=== PATIENT | female | born 1995 | race Caucasian/White ===

== ENCOUNTER → 2021-11-15 02:10 | Outpatient (CLI) | payer BC, SELFPAY ==
[2021-11-15 19:53] LABS: SARS-CoV-2 RNA PCR Negative
== END ==
PROVIDERS: PCP Internal Medicine; Visit Provider Obstetrics & Gynecology
DX: Z01.812 Encounter for preprocedural laboratory examination (principal); Z20.822 Contact with and (suspected) exposure to COVID-19
CPT/HCPCS: C9803; U0003; U0005

== ENCOUNTER 2021-11-15 09:02 | Outpatient (CLI) | payer BC, SELFPAY | END 2021-11-15 09:03 | disposition home or self-care (01) | LOC: ANHSURGERY 09:05 | PROVIDERS: PCP Internal Medicine; Visit Provider Obstetrics & Gynecology | DX: R10.2 Pelvic and perineal pain (principal); Z01.818 Encounter for other preprocedural examination | CPT/HCPCS: 36415; 86850; 86900; 86901 ==

== ENCOUNTER 2021-11-18 02:11 | Day surgery (SDC) | payer BC, SELFPAY ==
[2021-11-14 14:46] VITALS: BMI 37.5
--- NOTE | 2021-11-14 14:55 | PC.NURSE ---
Report to the Outpatient Waiting Room, entrance under the green pavilion located off [facility], at time 7:30 on date 11/18/21. OR Time: 9:30. - You will be asked a series of questions to screen for COVID 19 for your protection. - A mask is required within the hospital. - No visitors are allowed at this time. Preoperative COVID Testing Requirements: COVDI TEST 11/15 AT 9:15 No COVID Test needed if: (proof is required; if not received patient will have Rapid Test prior to entry) - Patient has received COVID Vaccine at least 14 days prior to procedure date or - Patient has positive COVID test result within last 90 days of surgery date. COVID Test needed if above criteria is not met If not COVID vaccinated a COVID test must be conducted within 72 hours of surgery and patient is asked to isolate self from time of testing until procedure. You will go to the [employer] [facility] for your COVID testing. The [employer] [facility] is located at the corner of [address] from [facility]. You will only be called if COVID results are positive and your surgeon may reschedule your elective surgery date. Patients may have clear liquids (water, carbonated beverages, clear teas, apple juice) until 3 hours prior to surgery (6:30) with a maximum of 20 ounces. - No food from midnight until time of surgery Take the following medications with a SIP of water the morning of surgery: NONE Medications to discontinue per physician: N/A Date to take last dose: N/A Please no make-up, nail sinhala, hairspray, perfume, deodorant, or body powder the day of surgery. No jewelry (including any body piercings) or valuables the day of surgery, leave them at home. Please take a shower or bath the night before, or the morning of, surgery with an antibacterial soap. Wear comfortable, loose fitting clothing. - Jewelry must be removed prior to entering the operating room. Rings and piercings that are not removed may be cut off. - The hospital will not accept responsibility for valuables. - Please leave all valuables, including medications, at home the day of surgery. If you are going home after surgery, a licensed ice delivery driver must drive you home. - NO public transportation without another adult. - We recommend that an adult stay with you for 24 hours following discharge. - We also recommend that you do not drive, make important decision, drink alcoholic beverages, or take any drugs that were not prescribed by your health care provider for at least 24 hours after your discharge time. Follow any additional instructions given to you from your surgeon. Telephone instructions given to CAMERON BUNN and asked if any additional questions and then verbalized understanding. Patient advised to call surgeon office or pre surgery nurse liaison [phone] if any additional questions.
--- NOTE | 2021-11-16 11:53 | P.HP_ITS ---
H&P: HPI History of Present Illness Date/Time: 11/16/21 11:53 26-year-old admitted for laparoscopy secondary to pain and chronic discomfort and dyspareunia. She did not do well with control as before past and has had negative STD testing with continued pelvic pain. Ultrasound was unhelpful. Risks and benefits were reviewed including but not exclusive of , aspiration removed, bleeding, transfusion, perforation injury to bowel, bladder, ureters, or other internal organs with need for open laparotomy. She received the ACOG handout entitled laparoscopy. She had all questions answered. She asked to proceed Chief Complaint: Pelvic pain Review of Systems Review of Systems: All systems reviewed & are unremarkable except as noted in HPI and below [facility] Social History Social History Smoking packs per day: 0.5 Smoking cigarettes per day: 10.0 Years smoked: 3 Smoking pack-years: 1.50 Smoking status: Current every day smoker Tobacco type: cigarettes Alcohol intake: never Substance use: never Substance use type: does not use Spiritual care concerns: No Meds Home Medications and Allergies Home Medications Medication Instructions Recorded Confirmed Type No Home Medications 11/14/21 11/14/21 History Allergies Allergy/AdvReac Type Severity Reaction Status Date / Time No Known Allergies Allergy Verified 11/14/21 14:46 Exam Const: General: no acute distress Eyes: General: appearance normal, both eyes and all related structures Neck: Neck: supple and no JVD Thyroid: thyroid normal Resp: Effort & Inspection: normal respiratory effort Auscultation: clear to auscultation bilaterally Cardio: Rate: regular rate Rhythm: regular rhythm GI: Inspection: non-distended GI Palp: Yes Soft to palpation, No Tenderness to palpation present (GI) and No Guarding due to palpation present (GI) Auscultation: normal bowel sounds : External Female Exam: normal external appearance Speculum Exam - Vagina: normal appearance of the vagina Speculum Exam - Cervix: normal appearance of the cervix Bimanual exam- vagina & uterus: Uterine tenderness Bimanual Exam- Adnexa, other: tender Skin: General skin exam: no rashes or lesions noted Extrem: General: normal to inspection and no edema Psych: Mental Status: mental status grossly normal Affect: normal affect Assessment and Plan Additional Plan Impression: Pelvic pain Plan: Diagnostic laparoscopy
--- NOTE | 2021-11-17 15:03 | P.PNAN_ITS ---
Anes - Initial Pre Proc Eval Procedure: Operation Date: 11/18/21 11:30 Proposed Procedures p Diagnostic Laparoscopy - Josue Palmer MD Date/Time: 11/17/21 15:03 Surgeon: Josue Palmer MD Pre Op Diagnosis: pelvic pain Patient Data Age: 26 Gender: F Height: 1.68 m Weight: 105.69 kg Allergies Allergy/AdvReac Type Severity Reaction Status Date / Time No Known Allergies Allergy Verified 11/14/21 14:46 Home Medications Medication Instructions Recorded Confirmed Type hydrocodone-acetaminophen 1 tablet PO Q4H PRN #20 tablet 11/18/21 Rx Patient hx anesthesia problems: none Family hx anesthesia problems: none Results Review: All pre-operative results and documents have been reviewed as part of the pre-operative evaluation. [facility] Past Medical History Medical History (Updated 11/18/21 @ 10:13 by New Garrison DO) Pseudotumor cerebri Seizure x1 after lap monique Surgical History Surgical History (Updated 11/17/21 @ 15:04 by New Garrison DO) History of cholecystectomy Social History Social History Smoking packs per day: 0.5 Smoking cigarettes per day: 10.0 Years smoked: 3 Smoking pack-years: 1.50 Smoking status: Current every day smoker Tobacco type: cigarettes Alcohol intake: never Substance use: never Substance use type: does not use Living arrangements: with family Spiritual care concerns: No Anes - Eval Final PreProcedure Day of Procedure 11/17/21 15:03 Patient weight: obese Heart: regular rate and rhythm Lungs: clear to auscultation and normal air movement Airway: Mallampati scale class II Neurological: alert and oriented Last oral intake: >/= 8 hours ASA classification: III Emergent: no Anesthetic plan: proceed Anesthesia type and monitoring: general ETT and standard monitoring Results Review: All pre-operative results and documents have been reviewed as part of the pre-operative evaluation. Informed Consent: The patient's anesthetic plan and its attendant risks and benefits were discussed with the patient/family/POA. Questions were solicited and answers provided to the satisfaction of the patient/family/POA.
[2021-11-18] VITALS (8 sets, daily range): BP systolic 115–152; BP diastolic 77–105; PULSE 58–95; RESP 16–20; TEMP 36.2–36.7; O2SAT 100
--- NOTE | 2021-11-18 07:19 | WPDHPUPDATE1 ---
History and Physical Update Update Date/Time: 11/18/21 07:19 History and Physical has been reviewed, including an updated exam of the patient. There are NO changes in the patient's condition. Risks, benefits, and alternatives have been discussed and questions answered. Patient agrees to proceed with procedure.
[2021-11-18] MEDS: ACETAMINOPHEN 500 MG TABLET 1000 MG PO (10:15)
[2021-11-18] MEDS: LACTATED RINGERS 1,000 ML 30 ML IV CONT ×2 (10:15→11:52)
[2021-11-18] MEDS: KETOROLAC 15 MG/ML VIAL (*BKC) IV PUSH (10:25)
--- NOTE | 2021-11-18 11:47 | W.PM.PROC2 ---
Procedure Note - Detailed Date of Procedure 11/18/21 Pre-op Diagnosis pelvic pain Post-op Diagnosis other (Endometriosis and right ovarian cyst) Procedure Performed Laparoscopic destruction of endometriosis/destruction of right ovarian cyst Surgeon Josue Palmer MD Anesthesia general Indications A 26-year-old female with chronic pelvic pain Findings Normal-appearing left ovary and tube. Normal-appearing uterus. [id number] of serosanguineous fluid in the cul-de-sac. Endometriosis along the left and right uterosacral ligaments in the form of powder burn and blisters. Moderate-sized benign ovarian cyst. On the right Description of Procedure The patient is prepped and draped in the normal sterile fashion placed in dorsal lithotomy position. Under excellent general trach anesthesia weighted speculum placed in posterior fornix vagina anterior lip of the cervix grasped with single-tooth tenaculum and attached to be used later for uterine manipulation. The bladder was emptied of clear urine and a weighted speculum was removed. Gloves were changed An infraumbilical incision made Veress needle passed in the abdomen. Abdomen filled with CO2 gas [id number]. 5mm trocar advanced under direct visualization assuring no injury. The patient placed in Trendelenburg and a suprapubic incision made. The 5mm trocar advanced under direct visualization assuring no injury the above findings were seen the 25cc of serosanguineous fluid was suction and removed above powder burn area of endometriosis on the left uterosacral was cauterized at 35 w per 2nd several blistered areas were also cauterized. The ovaries and tubes appeared grossly within normal limits there was a fine follicular cyst on the right which was opened in linear fashion and drained of clear fluid. Irrigation was undertaken until clear the appendix appeared clear. The gallbladder could not be seen and it was assumed she had previous cholecystectomy. No other abnormalities were seen in photo documentation undertaken. Gas removed from the abdomen and the trocar sites removed. The incisions closed with 4-0 Monocryl and glue. The patient was awakened went to recovery in satisfactory condition. All sponge, needle, instrument counts were correct. There were no immediate complications Estimated Blood Loss 5 Drains No Packing No Pathology none sent Complications No immediate complications Condition stable Disposition PACU
[2021-11-18] MEDS: ONDANSETRON INJ 4 MG/2 ML VIAL IV PUSH (13:15)
== END 2021-11-18 13:40 | disposition home or self-care (01) ==
PROVIDERS: PCP Internal Medicine; Visit Provider Obstetrics & Gynecology
PROC: (CPT 49320; principal; 2021-11-18 11:30)
DX: R10.2 Pelvic and perineal pain (principal); N80.3 Endometriosis of pelvic peritoneum; N83.201 Unspecified ovarian cyst, right side; G89.29 Other chronic pain; G93.2 Benign intracranial hypertension; F17.210 Nicotine dependence, cigarettes, uncomplicated; E66.9 Obesity, unspecified; Z68.36 Body mass index [BMI] 36.0-36.9, adult
CPT/HCPCS: 58662; 36415; 86850; 86900; 86901; A9270; C9803; J0330; J1100; J1885; J2250; J2270; J2405; J2704; J7030; J7120; U0003; U0005

== ENCOUNTER 2022-10-02 08:55 | Emergency (ER) | payer MEDICAID, SELFPAY ==
--- NOTE | ~2022-10-02 | US_ITS ---
US_ABDRLQ_US DATE: 10/02/2022 10:44 INDICATION: Right lower quadrant abdominal pain; 9 weeks gestation TECHNIQUE: Real-time imaging of the right lower quadrant COMPARISON: None FINDINGS: The appendix is not identified. No obvious mass or abnormal fluid collection is detected. IMPRESSION: Nonspecific examination; appendix is not identified. Reviewed, dictated and finalized at Location A. Reviewed, dictated and finalized at location B. INGS INSPECTOR
--- NOTE | ~2022-10-02 | US_ITS ---
CORRECTED REPORT TV not done. This report was recreated on 10/04/2022. Original report was SAFETY MANAGER. 10/04/2022 sef EXAMINATION: US OB <=14 wk fetus DATE: 10/02/2022 10:44 INDICATION: Right lower quadrant abdominal/pelvic pain during first trimester TECHNIQUE: Real-time pelvic ultrasound utilizing both a transvaginal and transabdominal probe was performed. The interpreting radiologist was not present for the study. COMPARISON: None. FINDINGS: The uterus measures 13.1 x 4.8 x 9.1 cm. There is an intrauterine gestational sac. A yolk sac and pole are identified. The crown rump length measures 2.6 cm, which correlates with an estimated gestational age of 9 weeks and 3 days. heart motion is identified measuring 167 beats per minute (bpm) by M-mode Doppler. The right ovary measures 5.3 x 3.8 x 4.4 cm. 4.4 cm anechoic right ovarian cyst. The left ovary measures 4.1 x 2.3 x 2.6 cm. Vascular flow identified in both ovaries on color Doppler. There is no free fluid in the pelvis. IMPRESSION: 1. Single living fetus with heart rate of 167 bpm. 2. Gestational age by ultrasound of 9 weeks 3 day(s) +/- 6 day(s) with ultrasound estimated date of delivery ([facility]) of 05/04/2023. Reviewed, dictated and finalized at location A. SAFETY MANAGER MTDD IMPRESSION: 1. Single living fetus with heart rate of 167 bpm. 2. Gestational age by ultrasound of 9 weeks 3 day(s) +/- 6 day(s) with ultraso und estimated date of delivery ([facility]) of 05/04/2023.
--- NOTE | 2022-10-02 09:03 | ED.ABDPAIN ---
HPI - Abdominal Pain General Chief Complaint: Abdominal Pain Stated Complaint: 9 weeks preg- pain on right abd Time Seen by Provider: 10/02/22 08:59 Source: patient Mode of arrival: ambulatory Limitations: no limitations History of Present Illness HPI narrative: Patient is a 27 y/o female who presents to the ED with c/o RLQ abdominal pain. Patient is and currently 9 weeks gestation. She has had a previous ultrasound confirming IUP under Dr. Sapna Davidson. She reports she developed pain in her right lower quadrant last night after having intercourse. She states it felt like something ruptured inside. Pain has been intermittent throughout the night, but began radiating around to her R lower back today which prompted her presentation. She has not tried any Tylenol for this. She has hyperemesis gravidarum, but denies worsening nausea or vomiting. Denies fever, dysuria, hematuria, vaginal bleeding, diarrhea, constipation. Patient has Hx of kidney stones, but states this pain does not feel similar. Related Data Home Medications Medication Instructions Recorded Confirmed ondansetron HCl 4 mg tablet mg 10/02/22 Allergies Allergy/AdvReac Type Severity Reaction Status Date / Time No Known Allergies Allergy Verified 10/02/22 09:15 Review of Systems Review of Systems: CONSTITUTIONAL: Denies fever, chills, or sweats. CARDIOVASCULAR: Denies chest pain. RESPIRATORY: Denies dyspnea. GASTROINTESTINAL: Reports right lower quadrant abdominal pain. Denies constipation, nausea, vomiting, or diarrhea. GENITOURINARY: Denies vaginal bleeding, dysuria or hematuria. MUSCULOSKELETAL: Reports right lower back pain. All systems reviewed & are unremarkable except as noted in HPI and below PMFSH Past Medical History Medical History Kidney stones Pseudotumor cerebri Seizure x1 after lap monique Surgical History Surgical History History of cholecystectomy Social History Social History Smoking packs per day: 0.5 Smoking cigarettes per day: 10.0 Years smoked: 3 Smoking pack-years: 1.50 Smoking status: Current every day smoker Tobacco type: cigarettes Alcohol intake: never Substance use: never Substance use type: does not use Spiritual care concerns: No Exam Narrative: GENERAL: Well appearing, obese, non-toxic, in no acute distress. HEAD: Normocephalic, atraumatic. NECK: Supple. No adenopathy, no masses. RESPIRATORY: Airway patent, respirations nonlabored. Clear to auscultation bilaterally, no rales, rhonchi, wheezing. CARDIOVASCULAR: Regular rate and rhythm without murmurs, rubs, or gallops. Peripheral pulses 2+ and equal bilaterally. ABDOMINAL: Soft, mild tenderness to palpation in R lower and lateral abdomen, nondistended, no hepatosplenomegaly. Normoactive BS. MUSCULOSKELETAL: Moves all extremities. Strength/ROM intact without gross deformities. No significant tenderness throughout lumbosacral region. SKIN: Warm, dry, normal color. No rashes. NEURO: A&O X3. Speech clear. Cranial nerves II-XII grossly intact. Steady gait. No ataxic movements. PSYCHIATRIC: Appropriate mood and affect. Normal interaction. Course Consultations Consultation #1: Discussed case with Dr. Herrmann, MACHINE HAND on-call, agreed with plan for discharge with strict return precautions. No further recommendations at this time. Date: 10/02/22 Time: 11:30 Vital Signs Vital signs: Vital Signs Temperature 97.6 F 10/02/22 09:09 Pulse Rate 104 H 10/02/22 09:09 Respiratory Rate 20 10/02/22 09:09 Blood Pressure 130/94 H 10/02/22 09:09 Pulse Oximetry 100 10/02/22 09:09 Temperature 97.6 F 10/02/22 09:09 Pulse Rate 104 H 10/02/22 09:09 Respiratory Rate 20 10/02/22 09:09 Blood Pressure 130/94 H 10/02/22 09:09 Pulse Oximetry 100 10/02/22
[2022-10-02 09:09] VITALS: BP 130/94; PULSE 104; RESP 20; TEMP 36.4; O2SAT 100
[2022-10-02 09:21] LABS: Basophils Percent Auto 0.4 % (0.2-1.2); Eosinophils Absolute Auto 0.1 K/mm3 (0-0.3); Eosinophils Percent Auto 0.8 % (0-4.4); Hematocrit 37.6 % (37.0-47.0); Hemoglobin 13.1 g/dL (12.0-15.0); Immature Granulocyte Absolute 0.02 K/mm3 (0.00-0.031); Immature Granulocyte Percent A 0.3 % (0-0.5); Lymphocytes Absolute Auto 1.77 K/mm3 (0.9-3.2); Lymphocytes Percent Auto 23.4 % (18.3-44.2); Mean Corpuscular HGB Conc 34.8 g/dl (32-36); Mean Corpuscular Hemoglobin 32.3 pg (26-34); Mean Corpuscular Volume 92.8 fl (80-100); Mean Platelet Volume 10.1 fl (7.4-10.4); Monocytes Absolute Auto 0.6 K/mm3 (0.1-0.6); Monocytes Percent Auto 8.2 % (2.6-8.5); Neutrophils Absolute Auto 5.1 K/mm3 (1.3-6.7); Neutrophils Percent Auto 66.9 % (45.5-73.1); Platelet Count Result 274 k/mm3 (150-375); Red Blood Count 4.05 M/mm3 (4.2-5.4); Red Cell Distribution Width 12.8 % (11.5-14.5); White Blood Count 7.6 K/mm3 (4.5-10.0)
[2022-10-02 09:22] LABS: Appearance Urine Clear (Clear); Bilirubin Urine Negative (Negative); Blood Urine Trace-intact (Negative); Color Urine Yellow (Yellow); Glucose Urine UA Negative (Negative); Ketones Urine Negative (Negative); Leukocyte Esterase Ur Negative LEU/UL (Negative); Nitrate Urine Negative (Negative); Protein Urine Negative (Negative); Specific Grav Ur 1.015 (1.001-1.035); Urobilinogen Urine 0.2 mg/dL (<2.0)
[2022-10-02 09:23] LABS: Mucus Urine Rare /lpf; RBC Urine 0-2 /hpf (0-2); Squamous Epithelial Cell Urine Occasional /hpf (Few); WBC Urine 0-3 /hpf
[2022-10-02 09:28] LABS: Add Urine Microscopic? YES
[2022-10-02 09:32] LABS: Alanine Aminotransferase 23 U/L (6-35); Albumin Level 4.5 g/dL (3.5-5.1); Alkaline Phosphatase 48 U/L (38-126); Anion Gap 10 mmol/L (8-16); Aspartate Amino Transferase 25 U/L (14-36); Bilirubin,Total 0.4 mg/dL (0.2-1.3); Blood Urea Nitrogen 5 mg/dL (7-17); Calcium 8.9 mg/dL (8.4-10.2); Carbon Dioxide 20 mmol/L (22-30); Chloride 103 mmol/L (98-107); Estimated CRCL calculation 172 ml/min; Estimated Glomerular Filt Rate > 60; Glucose 87 mg/dL (65-110); Lipase 71 U/L (23-300); Potassium 3.5 mmol/L (3.4-5.0); Sodium 133 mmol/L (137-145)
[2022-10-02] MEDS: SODIUM CHLORIDE 0.9% IV 1,000 ML 999 ML IV CONT (09:52)
[2022-10-02 11:51] VITALS: BP 120/81; PULSE 77; RESP 20; O2SAT 100
== END 2022-10-02 11:52 | disposition home or self-care (01) ==
PROVIDERS: Emergency Provider Physician Assistant; PCP Internal Medicine
DX: O26.891 Other specified pregnancy related conditions, first trimester (principal); R10.31 Right lower quadrant pain; O99.351 Diseases of the nervous system complicating pregnancy, first trimester; G93.2 Benign intracranial hypertension; O99.331 Smoking (tobacco) complicating pregnancy, first trimester; F17.210 Nicotine dependence, cigarettes, uncomplicated; Z3A.09 9 weeks gestation of pregnancy; Z87.442 Personal history of urinary calculi
CPT/HCPCS: 36415; 76705; 76801; 76817; 80053; 81001; 81025; 83690; 84702; 85025; 96365; 99284; J0131; J7030

== ENCOUNTER 2022-10-13 06:54 | Emergency (ER) | payer MEDICAID, SELFPAY ==
[2022-10-13 06:58] VITALS: BP 112/71; PULSE 97; RESP 16; TEMP 36.7; O2SAT 100
--- NOTE | 2022-10-13 09:20 | PC.NURSE ---
called at 0900- no answer called at 0915- no answer
== END 2022-10-13 09:15 | disposition left against medical advice (07) ==
LOC: ANHED 09:29
PROVIDERS: PCP Internal Medicine
DX: O21.9 Vomiting of pregnancy, unspecified (principal)
CPT/HCPCS: 99199

== ENCOUNTER 2022-10-27 04:32 | Emergency (ER) | payer MEDICAID, SELFPAY ==
--- NOTE | ~2022-10-27 | XR_ITS ---
Clinical Indication: Shortness of PA and lateral views of the chest: Comparison: None Findings: The lungs are clear, without evidence of focal consolidation or pleural effusion. Cardiome diastinal silhouette is within normal limits. Bones and soft tissues are unremarkable. Impression: Normal chest. Reviewed, dictated and finalized at location . RD LIBRARIAN Impression: Normal chest.
[2022-10-27 04:34] VITALS: BP 132/83; PULSE 99; RESP 18; TEMP 36.3; O2SAT 100
[2022-10-27 05:15] LABS: Basophils Percent Auto 0.4 % (0.2-1.2); Eosinophils Absolute Auto 0.1 K/mm3 (0-0.3); Eosinophils Percent Auto 0.9 % (0-4.4); Hematocrit 35.6 % (37.0-47.0); Hemoglobin 12.4 g/dL (12.0-15.0); Immature Granulocyte Absolute 0.03 K/mm3 (0.00-0.031); Immature Granulocyte Percent A 0.4 % (0-0.5); Lymphocytes Absolute Auto 1.35 K/mm3 (0.9-3.2); Lymphocytes Percent Auto 17.4 % (18.3-44.2); Mean Corpuscular HGB Conc 34.8 g/dl (32-36); Mean Corpuscular Hemoglobin 32.5 pg (26-34); Mean Corpuscular Volume 93.2 fl (80-100); Mean Platelet Volume 9.9 fl (7.4-10.4); Monocytes Absolute Auto 0.7 K/mm3 (0.1-0.6); Monocytes Percent Auto 9.3 % (2.6-8.5); Neutrophils Absolute Auto 5.6 K/mm3 (1.3-6.7); Neutrophils Percent Auto 71.6 % (45.5-73.1); Platelet Count Result 253 k/mm3 (150-375); Red Blood Count 3.82 M/mm3 (4.2-5.4); Red Cell Distribution Width 12.9 % (11.5-14.5); White Blood Count 7.8 K/mm3 (4.5-10.0)
[2022-10-27 05:21] LABS: Add Urine Microscopic? YES; Appearance Urine Clear (Clear); Bilirubin Urine Negative (Negative); Blood Urine Trace-Intact (Negative); Color Urine Yellow (Yellow); Glucose Urine UA Negative (Negative); Ketones Urine Negative (Negative); Leukocyte Esterase Ur Negative LEU/UL (Negative); Nitrate Urine Negative (Negative); Protein Urine Negative (Negative); Specific Grav Ur 1.025 (1.001-1.035); Urobilinogen Urine 0.2 mg/dL (<2.0)
[2022-10-27] MEDS: ONDANSETRON INJ 4 MG/2 ML VIAL IV PUSH (05:21)
[2022-10-27] MEDS: MORPHINE SULFATE (*CRX) 2 MG/ML INJ IV PUSH (05:22)
[2022-10-27] MEDS: SODIUM CHLORIDE 0.9% IV 1,000 ML 999 ML IV CONT (05:23)
[2022-10-27 05:25] LABS: INR 1.1; Partial Thromboplastin Time 32.4 SECONDS (22.3-36.8); Prothrombin Time 13.5 Seconds (11.1-14.7)
[2022-10-27 05:30] LABS: Alanine Aminotransferase 28 U/L (6-35); Alkaline Phosphatase 47 U/L (38-126); Anion Gap 7 mmol/L (8-16); Aspartate Amino Transferase 23 U/L (14-36); Bilirubin,Total 0.3 mg/dL (0.2-1.3); Blood Urea Nitrogen 7 mg/dL (7-17); Calcium 8.7 mg/dL (8.4-10.2); Carbon Dioxide 23 mmol/L (22-30); Chloride 103 mmol/L (98-107); Estimated CRCL calculation 175 ml/min; Estimated Glomerular Filt Rate > 60; Glucose 85 mg/dL (65-110); Lipase 69 U/L (23-300); Mucus Urine Rare /lpf; Potassium 3.7 mmol/L (3.4-5.0); Sodium 133 mmol/L (137-145); Squamous Epithelial Cell Urine Many /hpf (Few); WBC Urine 0-3 /hpf
[2022-10-27 06:30] LABS: D Dimer 0.46 ug/mL (<0.48)
--- NOTE | 2022-10-27 06:40 | ED.BACK ---
HPI - Back Pain/Injury General Chief Complaint: Back Pain/Injury Stated Complaint: back pain Time Seen by Provider: 10/27/22 04:45 Source: patient, RN notes reviewed and old records reviewed Mode of arrival: ambulatory Limitations: no limitations History of Present Illness HPI Narrative: This is a 27 year old female who is 13 weeks GA who presents for evaluation left mid back pain. This pain started yesterday. She states she was pulling up her pants when her pain began. She describes pain has constant pain that is nonradiating. She also reports pain is worse with breathing. She states she is short of breath when she has severe pain. She denies abdominal pain, dysuria, hematuria, fever, chills. She reports nausea due to . She also denies leg swelling or calf pain. She has been taking tylenol for her pain, and her last dose was at 3 am. Related Data Home Medications Medication Instructions Recorded Confirmed ondansetron HCl 4 mg tablet mg 10/02/22 Allergies Allergy/AdvReac Type Severity Reaction Status Date / Time No Known Allergies Allergy Verified 10/02/22 09:15 Review of Systems Constitutional: Constitutional: Denies weakness Cardiovascular: Cardiovascular: Denies syncope, Denies rapid heart rate, Denies irregular heart rhythm, Denies leg edema and Denies dyspnea Respiratory: Respiratory: Denies chest congestion, Denies hemoptysis, Denies excessive phlegm production and Reports dyspnea Gastrointestinal: Gastrointestinal: Denies abdominal pain, Denies hematochezia, Denies diarrhea, Reports nausea and Denies vomiting Genitourinary: Genitourinary: Denies hematuria, Denies dysuria and Reports flank pain Musculoskeletal: Musculoskeletal: Denies joint swelling, Denies loss of height and Denies muscle weakness Neurologic: Denies syncope, Denies focal weakness and Denies weakness [facility] Past Medical History Medical History Kidney stones Pseudotumor cerebri Seizure x1 after lap monique Surgical History Surgical History History of cholecystectomy Social History Social History Smoking packs per day: 0.5 Smoking cigarettes per day: 10.0 Years smoked: 3 Smoking pack-years: 1.50 Smoking status: Current every day smoker Tobacco type: cigarettes Alcohol intake: never Substance use: never Substance use type: does not use Spiritual care concerns: No Exam Const: General: no acute distress and alert Nutritional Appearance: well nourished Orientation/consciousness: patient oriented x3 HENMT: Head: normal to inspection Eyes: EOM: EOMs intact bilaterally Chest: Chest palpation & inspection: normal inspection of the chest Resp: Effort & Inspection: normal respiratory effort Auscultation: clear to auscultation bilaterally Cardio: Rate: regular rate Rhythm: regular rhythm Heart sounds: no murmurs GI: GI Palp: Yes Soft to palpation, No Tenderness to palpation present (GI), No Guarding due to palpation present (GI) and No Rigid due to palpation Auscultation: normal bowel sounds Back/Spine/Pelvis: Thoracic/Lumbar Spine: paraspinal muscle tenderness on the left Skin: General skin exam: normal color Rashes: no rashes Wounds: no wounds Neuro: General: patient oriented x3, moves all extremities and CN's II-XI intact bilaterally Extrem: General: normal to inspection Psych: Mental Status: mental status grossly normal Affect: normal affect Attitude: cooperative Course Reevaluation(s) Reevaluation #1: I discussed with patient that her pain is mostly muscular in nature. D dimer is negative. No UTI. I looked at left flank with bedside US. I did not see left renal hydronephrosis to Kidney stone unlikely. PAtient feels better. She will continue tylenol for her pain. Date: 10/27/22 Ti
[2022-10-27 07:06] VITALS: BP 127/80; PULSE 94; RESP 18; TEMP 36.7; O2SAT 98
== END 2022-10-27 07:07 | disposition home or self-care (01) ==
PROVIDERS: Emergency Provider General Practice; PCP Internal Medicine
DX: O9A.211 Injury, poisoning and certain other consequences of external causes complicating pregnancy, first trimester (principal); S29.012A Strain of muscle and tendon of back wall of thorax, initial encounter; O26.891 Other specified pregnancy related conditions, first trimester; R10.9 Unspecified abdominal pain; O99.331 Smoking (tobacco) complicating pregnancy, first trimester; F17.210 Nicotine dependence, cigarettes, uncomplicated; Z3A.13 13 weeks gestation of pregnancy; Z87.442 Personal history of urinary calculi; X50.9XXA Other and unspecified overexertion or strenuous movements or postures, initial encounter
CPT/HCPCS: 36415; 71046; 80053; 81001; 83690; 85025; 85380; 85610; 85730; 96361; 96374; 96375; 99284; J2270; J2405; J7030

== ENCOUNTER 2022-11-13 07:22 | Emergency (ER) | payer OTHER, SELFPAY ==
--- NOTE | ~2022-11-13 | US_ITS ---
US abdomen limited DATE: 11/13/2022 09:01 INDICATION: Right lower quadrant abdominal pain started late last night TECHNIQUE: Real-time imaging and color flow imaging of right lower quadrant COMPARISON: 10/02/2022 obstetrical ultrasound FINDINGS: At the area of complaint of pain in the right lower quadrant there is a 3.8 x 3 x 3.9 cm ri ght ovarian simple cyst with some surrounding vascularity. No distinct appendix is visualized. No other significant finding or abnormal fluid collection is evid ent. IMPRESSION: 3.9 cm right ovarian cyst Reviewed, dictated and finalized at [facility]. Reviewed, dictated and finalized at location [facility]. RIBUTION A CLASS LINEMAN IMPRESSION: 3.9 cm right ovarian cyst
[2022-11-13 07:31] VITALS: BP 131/86; PULSE 87; RESP 18; TEMP 36.6; O2SAT 100
[2022-11-13 07:57] LABS: Appearance Urine Clear (Clear); Bilirubin Urine Negative (Negative); Blood Urine Trace-intact (Negative); Color Urine Yellow (Yellow); Glucose Urine UA Negative (Negative); Ketones Urine Negative (Negative); Leukocyte Esterase Ur Negative LEU/UL (Negative); Nitrate Urine Negative (Negative); Protein Urine Negative (Negative); Specific Grav Ur 1.015 (1.001-1.035); Urobilinogen Urine 0.2 mg/dL (<2.0)
[2022-11-13 07:57] LABS: Basophils Percent Auto 0.2 % (0.2-1.2); Eosinophils Absolute Auto 0.1 K/mm3 (0-0.3); Eosinophils Percent Auto 0.5 % (0-4.4); Hematocrit 37.6 % (37.0-47.0); Hemoglobin 12.9 g/dL (12.0-15.0); Immature Granulocyte Absolute 0.04 K/mm3 (0.00-0.031); Immature Granulocyte Percent A 0.4 % (0-0.5); Lymphocytes Absolute Auto 1.48 K/mm3 (0.9-3.2); Lymphocytes Percent Auto 15.7 % (18.3-44.2); Mean Corpuscular HGB Conc 34.3 g/dl (32-36); Mean Corpuscular Hemoglobin 31.9 pg (26-34); Mean Corpuscular Volume 92.8 fl (80-100); Mean Platelet Volume 10.4 fl (7.4-10.4); Monocytes Absolute Auto 0.7 K/mm3 (0.1-0.6); Monocytes Percent Auto 6.9 % (2.6-8.5); Neutrophils Absolute Auto 7.2 K/mm3 (1.3-6.7); Neutrophils Percent Auto 76.3 % (45.5-73.1); Platelet Count Result 277 k/mm3 (150-375); Red Blood Count 4.05 M/mm3 (4.2-5.4); Red Cell Distribution Width 12.9 % (11.5-14.5); White Blood Count 9.4 K/mm3 (4.5-10.0)
[2022-11-13 08:00] LABS: Bacteria Urine Trace /hpf; Mucus Urine Rare /lpf; RBC Urine 0-2 /hpf (0-2); Squamous Epithelial Cell Urine Many /hpf (Few); WBC Urine 0-3 /hpf
[2022-11-13 08:01] LABS: Add Urine Microscopic? YES
[2022-11-13 08:10] LABS: Alanine Aminotransferase 25 U/L (6-35); Albumin Level 4.3 g/dL (3.5-5.1); Alkaline Phosphatase 57 U/L (38-126); Anion Gap 6 mmol/L (8-16); Aspartate Amino Transferase 23 U/L (14-36); Bilirubin,Total 0.4 mg/dL (0.2-1.3); Blood Urea Nitrogen 6 mg/dL (7-17); Calcium 9.1 mg/dL (8.4-10.2); Carbon Dioxide 24 mmol/L (22-30); Chloride 106 mmol/L (98-107); Estimated CRCL calculation 175 ml/min; Estimated Glomerular Filt Rate > 60; Glucose 86 mg/dL (65-110); Potassium 3.8 mmol/L (3.4-5.0); Sodium 136 mmol/L (137-145)
--- NOTE | 2022-11-13 08:11 | ED.ABDPAIN ---
HPI - Abdominal Pain General Chief Complaint: Abdominal Pain Stated Complaint: right flank pain, 15 wks preg Time Seen by Provider: 11/13/22 07:51 History of Present Illness HPI narrative: Pt says she noticed pain in RLQ in middle of night that has worsened. Pt says it radiates to her back a little. Pt is nauseated but not vomiting. Pt denies dysuria or frequency. Pt is 15 weeks confirmed by US. Pt has no surgical history. Related Data Home Medications Medication Instructions Recorded Confirmed ondansetron HCl 4 mg tablet mg 10/02/22 Allergies Allergy/AdvReac Type Severity Reaction Status Date / Time No Known Allergies Allergy Verified 11/13/22 07:46 Review of Systems Review of Systems: All systems reviewed & are unremarkable except as noted in HPI and below PMFSH Past Medical History Medical History Kidney stones Pseudotumor cerebri Seizure x1 after lap monique Surgical History Surgical History History of cholecystectomy Social History Social History Smoking packs per day: 0.5 Smoking cigarettes per day: 10.0 Years smoked: 3 Smoking pack-years: 1.50 Smoking status: Current every day smoker Tobacco type: cigarettes Alcohol intake: never Substance use: never Substance use type: does not use Spiritual care concerns: No Exam Const: General: healthy appearing Nutritional Appearance: well nourished Orientation/consciousness: patient oriented x3 Limitations: no limitations Resp: Effort & Inspection: normal respiratory effort Auscultation: clear to auscultation bilaterally Cardio: Rate: regular rate Rhythm: regular rhythm GI: GI Palp: Yes Soft to palpation and Yes Tenderness to palpation present (GI) (rlq at [facility]) Auscultation: normal bowel sounds Skin: General skin exam: normal color Neuro: General: patient oriented x3, moves all extremities, no meningeal signs and no focal motor deficits Speech: normal speech Extrem: General: normal to inspection and no clubbing, cyanosis or edema Psych: Mental Status: mental status grossly normal Affect: normal affect Attitude: cooperative Course Vital Signs Vital signs: Vital Signs Temperature 97.9 F 11/13/22 07:31 Pulse Rate 87 11/13/22 07:31 Respiratory Rate 18 11/13/22 07:31 Blood Pressure 131/86 11/13/22 07:31 Pulse Oximetry 100 11/13/22 07:31 Oxygen Delivery Room Air 11/13/22 07:31 Temperature 98.8 F 11/13/22 09:07 Pulse Rate 89 11/13/22 09:07 Respiratory Rate 16 11/13/22 09:07 Blood Pressure 119/78 11/13/22 09:07 Pulse Oximetry 100 11/13/22 09:07 Oxygen Delivery Room Air 11/13/22 07:31 MDM - Abdominal Pain MDM Narrative Medical decision making narrative: pt has ovarian cyst on sono appendix not visulaized. pt actually feels better. discussed with dr peck, discussed mri with pt, she would prefer to watch and see given the cyst and will return if pain gets worse . Differential Diagnosis Differential diagnosis: Likely abdominal pain, acute appendicitis, calculus of kidney, diverticulitis and other (ovarian torsion, not likely ectopic given prior normal us and 15 week status) Medical Records Attestation: I reviewed the patient's medical records. Lab Data Attestation: I reviewed the patient's lab results. 11/13/22 07:47 11/13/22 07:47 Labs: Lab Results 11/13/22 11/13/22 11/13/22 Range/Units 07:45 07:47 07:47 WBC 9.4 (4.5-10.0) K/mm3 RBC 4.05 L (4.2-5.4) M/mm3 Hgb 12.9 (12.0-15.0) g/dL Hct 37.6 (37.0-47.0) % MCV 92.8 (80-100) fl MCH 31.9 (26-34) pg MCHC 34.3 (32-36) g/dl RDW 12.9 (11.5-14.5) % Plt Count 277 (150-375) k/mm3 MPV 10.4 (7.4-10.4) fl Immature Gran % (Auto) 0.4 (0-0.5)
[2022-11-13] MEDS: ONDANSETRON INJ 4 MG/2 ML VIAL IV PUSH (08:21)
[2022-11-13 08:39] LABS: Prothrombin Time 13.1 Seconds (11.1-14.7)
[2022-11-13 08:40] LABS: Partial Thromboplastin Time 31.3 SECONDS (22.3-36.8)
[2022-11-13 09:07] VITALS: BP 119/78; PULSE 89; RESP 16; TEMP 37.1; O2SAT 100
== END 2022-11-13 10:35 | disposition home or self-care (01) ==
PROVIDERS: Emergency Provider Emergency Medicine; PCP Obstetrics & Gynecology
DX: N83.201 Unspecified ovarian cyst, right side (principal); Z87.442 Personal history of urinary calculi; F17.210 Nicotine dependence, cigarettes, uncomplicated
CPT/HCPCS: 36415; 76705; 80053; 81001; 85025; 85610; 85730; 96374; 99284; J2405

== ENCOUNTER 2022-12-18 04:35 | Observation (INO) | payer OTHER, SELFPAY ==
--- NOTE | ~2022-12-18 | US_ITS ---
Pelvic ultrasound. Clinical History: Vaginal bleeding, second trimester Technique: Realtime transabdominal and transvaginal scanning of the pelvis was performed. Color flow Doppler and Doppler spectral analysis were performed. Findings: The uterus is anteverted, and contains an intrauterine gestation. Cervix is closed, measuri ng approximately 4 cm in length. Placenta posteriorly located. heart rate is 146 bpm.. The right ovary measures 3.3 x 3.4 x 3.0 cm. No significant right ovarian or adnexal mass is seen. V ascular flow present in the right ovary on Doppler spectral analysis. The left ovary is not visualized. No significant left ovarian or adnexal mass is seen. There is no evidence of free fluid in the cul de sac. Impression: Live intrauterine gestation. heart rate is 146 bpm. Cervix closed. Reviewed, dictated and finalized at [facility]. BILITATION INSPECTOR Impression: Live intrauterine gestation. heart rate is 146 bpm. Cervix closed.
[2022-12-18 04:53] VITALS: BP 132/75; PULSE 88
[2022-12-18 05:01] VITALS: BP 126/69; PULSE 86
--- NOTE | 2022-12-18 05:03 | PC.NURSE ---
Spoke with Dr. Herrmann. Gave him Patients s/s. Orders to do an Ultra sound when they get here and to send a UA.
[2022-12-18 05:24] LABS: Appearance Urine Clear (Clear); Bilirubin Urine Negative (Negative); Blood Urine Negative (Negative); Color Urine Yellow (Yellow); Glucose Urine UA Negative (Negative); Ketones Urine Negative (Negative); Leukocyte Esterase Ur Negative LEU/UL (Negative); Nitrate Urine Negative (Negative); Protein Urine Negative (Negative); Urobilinogen Urine 0.2 mg/dL (<2.0); pH Urine 6.5 (5.0-9.0)
[2022-12-18 05:26] LABS: Add Urine Microscopic? NO
[2022-12-18 05:30] VITALS: RESP 16; TEMP 36.7
--- NOTE | 2022-12-18 06:29 | PC.NURSE ---
Report given to JOLENE Vallejo
--- NOTE | 2022-12-18 06:32 | OBADM ---
This patient, Demi Bojorquez, admitted to the OB room OB Post 115 for observation. Patient/family oriented to hospital policies and general routines including ID bracelet, bed and alarms, visiting hours, pain management, procedures, bathroom and other care routines, personal items, smoking policy, room service/diet, and visiting hours. Patient/Family are encouraged to report perceived risks to care and to ask questions if they do not understand what they are told or what they should do.
[2022-12-18 06:35] VITALS: BMI 34.5
--- NOTE | 2022-12-18 08:45 | WPDOBADMIT ---
Obstetrics - Admit Note Admission Note: record reviewed. Additions to the history and/or subsequent changes in the physical findings follow. 27 y/o G1 at 20 5/7 weeks who had light vaginal spotting overnight. She came to the hospital where she was found not to have any contractions. She feels fine this morning and has not had any more spotting or any overt bleeding. Blood type Opos. AVSS NST +fhr TOCO: no contractions ABD soft, nontender, gravid EXT nontender BACK: No cva tenderness UA neg Imaging: OB ultrasound exam shows live IUP with FHR 146 bpm. No evidence of previa or any sign of fluid collection / bleeding. No free fluid. A: Vaginal spotting in the midtrimester. Reassuring status, and no evidence of labor or infection. P: Home to practice pelvic rest for 1 week. F/u office this week as scheduled.
--- NOTE | 2022-12-18 08:54 | PC.NURSE ---
Dr. Herrmann at the bedside assessing the pt. Discharge orders received.
== END 2022-12-18 09:21 | disposition home or self-care (01) ==
PROVIDERS: Admitting Provider Obstetrics & Gynecology; Visit Provider Obstetrics & Gynecology
DX: O26.852 Spotting complicating pregnancy, second trimester (principal); Z3A.20 20 weeks gestation of pregnancy
CPT/HCPCS: 76815; 81003; G0378; G0379

== ENCOUNTER 2022-12-22 07:40 | Observation (INO) | payer OTHER, SELFPAY ==
[2022-12-22 07:50] VITALS: TEMP 36.3
[2022-12-22 07:55] VITALS: BMI 37.6
[2022-12-22 07:58] VITALS: BP 125/75; PULSE 86
[2022-12-22 08:01] VITALS: BP 117/65; PULSE 89
[2022-12-22 08:10] LABS: Appearance Urine Clear (Clear); Bilirubin Urine Negative (Negative); Blood Urine Trace-intact (Negative); Color Urine Yellow (Yellow); Glucose Urine UA Negative (Negative); Ketones Urine Negative (Negative); Leukocyte Esterase Ur Negative LEU/UL (NEGATIVE); Nitrate Urine Negative (Negative); Protein Urine Negative (Negative); Specific Grav Ur 1.015 (1.001-1.035); Urobilinogen Urine 0.2 mg/dL (<2.0)
[2022-12-22 08:13] LABS: Amorphous Sediment Urine Few; Bacteria Urine Trace /hpf; Mucus Urine Rare /lpf; RBC Urine 0-2 /hpf (0-2); Squamous Epithelial Cell Urine Occasional /hpf (Few); WBC Urine 0-3 /hpf (0-3)
[2022-12-22 08:15] LABS: Add Urine Microscopic? YES
--- NOTE | 2022-12-22 08:16 | PM.OBTRLD ---
OB - Triage/Final Diagnosis Visit Information Date of evaluation: 12/22/22 Reason for evaluation: threatened labor and other ( back pain /yeast) Comments/Additional reasons for admission: I have assessed the risk for this patient, Demi Bojorquez, and determined that she would benefit from observation care. Evaluation Cervical dilation (cm): 0 Cervical effacement (%): 0 station: -4 Laboratory results: Laboratory Tests 12/22/22 08:00 Urine Color Yellow Urine Appearance Clear Urine pH 7.0 Ur Specific [place] 1.015 Urine Protein Negative Urine Glucose (UA) Negative Urine Ketones Negative Ur Blood (Man) Trace-intact Urine Nitrate Negative Urine Bilirubin Negative Urine Urobilinogen 0.2 Ur Leukocyte Esterase Negative Urine RBC 0-2 Urine WBC 0-3 Ur Squamous Epith Cells Occasional Amorphous Sediment Few H Urine Bacteria Trace Urine Mucus Rare Vital signs: Vital Signs - 24 hr 12/22/22 07:58 12/22/22 08:01 Pulse Rate 86 89 Blood Pressure 125/75 117/65 Final Diagnosis (1) Back pain affecting : Code(s): O99.891 - Other specified diseases and conditions complicating ; M54.9 - Dorsalgia, unspecified Status: Acute (2) Second trimester : Code(s): Z34.92 - Encounter for supervision of normal , unspecified, second trimester Status: Acute (3) Yeast vaginitis: Code(s): B37.31 - Acute candidiasis of vulva and vagina Status: Acute Plan: Diflucan [id number]. Home on rest for today with threatened labor precautions
[2022-12-22] MEDS: FLUCONAZOLE 150 MG TABLET PO (09:03)
== END 2022-12-22 09:05 | disposition home or self-care (01) ==
LOC: ANHOBPP 08:52 → ANHOBOP 08:54 → ANHOBPP 08:54 → ANHOBOP 08:55 → ANHOBPP 08:55
PROVIDERS: Admitting Provider Obstetrics & Gynecology; Visit Provider Obstetrics & Gynecology
DX: O47.9 False labor, unspecified (principal); O99.891 Other specified diseases and conditions complicating pregnancy; M54.9 Dorsalgia, unspecified; O98.812 Other maternal infectious and parasitic diseases complicating pregnancy, second trimester; B37.31 Acute candidiasis of vulva and vagina; Z3A.21 21 weeks gestation of pregnancy
CPT/HCPCS: 81001; 87086; A9270; G0378; G0379

== ENCOUNTER 2023-01-26 17:48 | Observation (INO) | payer OTHER, SELFPAY ==
[2023-01-26] VITALS (8 sets, daily range): BP systolic 116–132; BP diastolic 61–72; PULSE 96–99; BMI 39.6
--- NOTE | 2023-01-26 18:04 | OBADM ---
This patient, eDmi Bojorquez, admitted to the OB room OB Post 115 for observation. Patient/family oriented to hospital policies and general routines including ID bracelet, bed and alarms, visiting hours, pain management, procedures, bathroom and other care routines, personal items, smoking policy, room service/diet, and visiting hours. Patient/Family are encouraged to report perceived risks to care and to ask questions if they do not understand what they are told or what they should do.
--- NOTE | 2023-02-05 06:56 | PM.OBTRLD ---
OB - Triage/Final Diagnosis Visit Information Reason for evaluation: threatened labor Comments/Additional reasons for admission: I have assessed the risk for this patient, Demi Bojorquez, and determined that she would benefit from observation care.
== END 2023-01-26 20:14 | disposition home or self-care (01) ==
PROVIDERS: Admitting Provider Obstetrics & Gynecology; Visit Provider Obstetrics & Gynecology
DX: O47.02 False labor before 37 completed weeks of gestation, second trimester (principal); Z3A.26 26 weeks gestation of pregnancy
CPT/HCPCS: G0378; G0379

== ENCOUNTER 2023-02-26 08:35 | Outpatient (CLI) | payer OTHER, SELFPAY ==
[2023-02-26 08:53] VITALS: BP 121/74; PULSE 99
[2023-02-26 09:11] LABS: Basophils Percent Auto 0.3 % (0.2-1.2); Eosinophils Absolute Auto 0.1 K/mm3 (0-0.3); Eosinophils Percent Auto 0.7 % (0-4.4); Hematocrit 32.3 % (37.0-47.0); Hemoglobin 10.7 g/dL (12.0-15.0); Immature Granulocyte Absolute 0.05 K/mm3 (0.00-0.031); Immature Granulocyte Percent A 0.4 % (0-0.5); Lymphocytes Percent Auto 13.3 % (18.3-44.2); Mean Corpuscular HGB Conc 33.1 g/dl (32-36); Mean Corpuscular Hemoglobin 31.5 pg (26-34); Mean Platelet Volume 9.8 fl (7.4-10.4); Monocytes Absolute Auto 0.9 K/mm3 (0.1-0.6); Monocytes Percent Auto 8.1 % (2.6-8.5); Neutrophils Absolute Auto 8.7 K/mm3 (1.3-6.7); Neutrophils Percent Auto 77.2 % (45.5-73.1); Platelet Count Result 301 k/mm3 (150-375); Red Cell Distribution Width 12.8 % (11.5-14.5); White Blood Count 11.3 K/mm3 (4.5-10.0)
[2023-02-26 09:15] LABS: Appearance Urine Cloudy (Clear); Bacteria Urine Rare /hpf; Bilirubin Urine Negative (Negative); Blood Urine Negative (Negative); Color Urine Yellow (Yellow); Glucose Urine UA Negative (Negative); Ketones Urine Negative (Negative); Leukocyte Esterase Ur Negative LEU/UL (NEGATIVE); Nitrate Urine Negative (Negative); Non Pathogenic Casts 0-2; Protein Urine Negative (Negative); Specific Grav Ur 1.022 (1.001-1.035); Squamous Epithelial Cell Urine Moderate /hpf (Few); WBC Urine 0-5 /hpf (0-3); pH Urine 7.5 (5.0-9.0)
[2023-02-26 09:16] VITALS: BP 112/79; PULSE 96
[2023-02-26 09:18] VITALS: BP 121/74; PULSE 94
[2023-02-26 09:22] LABS: Creatinine Urine 132.8 mg/dL; Total Protein Urine Random 8 mg/dL; Ur Ttl Prot Creatinine Ratio 0.06 mg/mg (0-0.20)
[2023-02-26 09:31] VITALS: BP 117/68; PULSE 95
[2023-02-26 09:32] LABS: Add Urine Microscopic? YES
[2023-02-26 09:46] VITALS: BP 116/76; PULSE 89
[2023-02-26 09:49] LABS: Alanine Aminotransferase 16 U/L (6-35); Albumin Level 3.6 g/dL (3.5-5.1); Alkaline Phosphatase 116 U/L (38-126); Anion Gap 6 mmol/L (8-16); Aspartate Amino Transferase 17 U/L (14-36); Bilirubin,Total 0.5 mg/dL (0.2-1.3); Blood Urea Nitrogen 6 mg/dL (7-17); Calcium 8.9 mg/dL (8.4-10.2); Carbon Dioxide 22 mmol/L (22-30); Chloride 107 mmol/L (98-107); Estimated Glomerular Filt Rate > 60; Glucose 94 mg/dL (65-110); Sodium 135 mmol/L (137-145); Uric Acid 4.3 mg/dL (2.5-7.5)
--- NOTE | 2023-02-26 10:02 | PC.NURSE ---
2964: Rn phoned Dr. Sapna Davidson to update OB about pt's lab results, urine results, VS, and reactive NST. Orders to discharge pt home.
== END 2023-02-26 10:05 | disposition home or self-care (01) ==
LOC: ANHOBOP 08:40 → ANHOBPP 08:41
PROVIDERS: Visit Provider Obstetrics & Gynecology
DX: O13.9 Gestational [pregnancy-induced] hypertension without significant proteinuria, unspecified trimester (principal); Z3A.00 Weeks of gestation of pregnancy not specified
CPT/HCPCS: 36415; 59025; 80053; 81001; 82570; 84156; 84550; 85025; 87086; 99199

== ENCOUNTER 2023-03-11 21:56 | Outpatient (CLI) | payer OTHER, SELFPAY ==
[2023-03-11] VITALS (7 sets, daily range): BP systolic 94–117; BP diastolic 51–70; PULSE 92–108
[2023-03-11 22:34] LABS: Basophils Percent Auto 0.4 % (0.2-1.2); Eosinophils Absolute Auto 0.1 K/mm3 (0-0.3); Eosinophils Percent Auto 0.9 % (0-4.4); Hematocrit 30.1 % (37.0-47.0); Hemoglobin 10.2 g/dL (12.0-15.0); Immature Granulocyte Absolute 0.06 K/mm3 (0.00-0.031); Immature Granulocyte Percent A 0.6 % (0-0.5); Lymphocytes Absolute Auto 2.07 K/mm3 (0.9-3.2); Lymphocytes Percent Auto 20.1 % (18.3-44.2); Mean Corpuscular HGB Conc 33.9 g/dl (32-36); Mean Corpuscular Volume 94.4 fl (80-100); Mean Platelet Volume 9.9 fl (7.4-10.4); Monocytes Absolute Auto 1.1 K/mm3 (0.1-0.6); Monocytes Percent Auto 10.2 % (2.6-8.5); Neutrophils Percent Auto 67.8 % (45.5-73.1); Platelet Count Result 312 k/mm3 (150-375); Red Blood Count 3.19 M/mm3 (4.2-5.4); Red Cell Distribution Width 12.9 % (11.5-14.5); White Blood Count 10.3 K/mm3 (4.5-10.0)
[2023-03-11 22:37] LABS: Appearance Urine Clear (Clear); Bilirubin Urine Negative (Negative); Blood Urine Negative (Negative); Color Urine Yellow (Yellow); Glucose Urine UA Negative (Negative); Ketones Urine Negative (Negative); Leukocyte Esterase Ur Negative LEU/UL (NEGATIVE); Nitrate Urine Negative (Negative); Protein Urine Negative (Negative); Specific Grav Ur 1.022 (1.001-1.035); pH Urine 6.5 (5.0-9.0)
[2023-03-11 22:48] LABS: Alanine Aminotransferase 16 U/L (6-35); Albumin Level 3.3 g/dL (3.5-5.1); Alkaline Phosphatase 120 U/L (38-126); Anion Gap 5 mmol/L (8-16); Aspartate Amino Transferase 19 U/L (14-36); Bilirubin,Total 0.3 mg/dL (0.2-1.3); Blood Urea Nitrogen 7 mg/dL (7-17); Calcium 8.5 mg/dL (8.4-10.2); Carbon Dioxide 22 mmol/L (22-30); Chloride 108 mmol/L (98-107); Estimated Glomerular Filt Rate > 60; Glucose 104 mg/dL (65-110); Potassium 3.7 mmol/L (3.4-5.0); Sodium 135 mmol/L (137-145); Uric Acid 4.2 mg/dL (2.5-7.5)
[2023-03-11 22:56] LABS: Add Urine Microscopic? NO
[2023-03-11 23:00] LABS: Creatinine Urine 131.4 mg/dL; Total Protein Urine Random 9 mg/dL; Ur Ttl Prot Creatinine Ratio 0.07 mg/mg (0-0.20)
[2023-03-12] VITALS: BP 101/42; PULSE 97
[2023-03-12 00:15] VITALS: BP 107/59; PULSE 94
[2023-03-12 00:30] VITALS: BP 106/56; PULSE 100
== END 2023-03-12 01:00 | disposition home or self-care (01) ==
LOC: ANHOBOP 22:01 → ANHOBPP 03-19 06:21
PROVIDERS: Visit Provider Obstetrics & Gynecology
DX: M79.89 Other specified soft tissue disorders (principal); O13.9 Gestational [pregnancy-induced] hypertension without significant proteinuria, unspecified trimester; Z3A.00 Weeks of gestation of pregnancy not specified
CPT/HCPCS: 36415; 80053; 81003; 82570; 84156; 84550; 85025; 87086; 87088; 99199

== ENCOUNTER 2023-04-02 12:23 | Outpatient (RCR) | payer OTHER, SELFPAY ==
--- NOTE | 2023-03-28 09:54 | PC.NURSE ---
Pt report having spots in her vision yesterday. pt does have pseudotumor cerebri and states she does occasionally have vision disturbance from that. Pt reports blood pressures at home in the 160/ 170s systolic.
--- NOTE | 2023-03-28 10:00 | PC.NURSE ---
Dr. Sapna Davidson updated on pt reported symptoms. 1st blood pressure reported. Order received for [facility] labs.
[2023-03-28 10:40] LABS: Basophils Percent Auto 0.3 % (0.2-1.2); Eosinophils Percent Auto 0.3 % (0-4.4); Hematocrit 32.2 % (37.0-47.0); Hemoglobin 10.7 g/dL (12.0-15.0); Immature Granulocyte Absolute 0.04 K/mm3 (0.00-0.031); Immature Granulocyte Percent A 0.4 % (0-0.5); Lymphocytes Absolute Auto 1.08 K/mm3 (0.9-3.2); Lymphocytes Percent Auto 10.9 % (18.3-44.2); Mean Corpuscular HGB Conc 33.2 g/dl (32-36); Mean Corpuscular Volume 93.3 fl (80-100); Mean Platelet Volume 10.1 fl (7.4-10.4); Monocytes Absolute Auto 0.6 K/mm3 (0.1-0.6); Monocytes Percent Auto 5.8 % (2.6-8.5); Neutrophils Absolute Auto 8.2 K/mm3 (1.3-6.7); Neutrophils Percent Auto 82.3 % (45.5-73.1); Platelet Count Result 279 k/mm3 (150-375); Red Blood Count 3.45 M/mm3 (4.2-5.4); Red Cell Distribution Width 13.2 % (11.5-14.5)
[2023-03-28 10:56] LABS: Alanine Aminotransferase 16 U/L (6-35); Albumin Level 3.2 g/dL (3.5-5.1); Alkaline Phosphatase 136 U/L (38-126); Anion Gap 7 mmol/L (8-16); Aspartate Amino Transferase 19 U/L (14-36); Bilirubin,Total 0.4 mg/dL (0.2-1.3); Blood Urea Nitrogen 8 mg/dL (7-17); Calcium 8.6 mg/dL (8.4-10.2); Carbon Dioxide 21 mmol/L (22-30); Chloride 106 mmol/L (98-107); Estimated Glomerular Filt Rate > 60; Glucose 161 mg/dL (65-110); Potassium 3.6 mmol/L (3.4-5.0); Sodium 134 mmol/L (137-145); Uric Acid 4.9 mg/dL (2.5-7.5)
[2023-03-28 11:09] VITALS: BP 125/67; PULSE 119
[2023-03-28 11:21] LABS: Total Protein Urine Random 11 mg/dL
[2023-03-28 11:35] LABS: Appearance Urine Cloudy (Clear); Bacteria Urine 4+ /hpf; Bilirubin Urine 1+ (Negative); Blood Urine 3+ (Negative); Color Urine Dark Yellow (Yellow); Glucose Urine UA 1+ mg/dL (Negative); Ketones Urine Trace mg/dL (Negative); Leukocyte Esterase Ur Trace LEU/UL (NEGATIVE); Mucus Urine Present /lpf; Nitrate Urine Negative (Negative); Non Pathogenic Casts 0-2; Protein Urine 1+ mg/dL (Negative); RBC Urine >100 /hpf (0-2); Specific Grav Ur 1.034 (1.001-1.035); Squamous Epithelial Cell Urine Many /hpf (Few); pH Urine 5.5 (5.0-9.0)
[2023-03-28 11:37] LABS: Add Urine Microscopic? YES
[2023-03-28 12:04] LABS: Creatinine Urine 425.8 mg/dL; Ur Ttl Prot Creatinine Ratio 0.03 mg/mg (0-0.20)
--- NOTE | 2023-03-28 12:47 | P.PNOB_ITS ---
OB - Triage/Final Diagnosis Visit Information Date of evaluation: 03/28/23 Reason for evaluation: other (htn) Comments/Additional reasons for admission: I have assessed the risk for this patient, Demi Bojorquez, and determined that she would benefit from observation care. Evaluation Laboratory results: Laboratory Tests 03/28/23 03/28/23 10:29 11:06 WBC 10.0 RBC 3.45 L Hgb 10.7 L Hct 32.2 L MCV 93.3 MCH 31.0 MCHC 33.2 RDW 13.2 Plt Count 279 MPV 10.1 Immature Gran % (Auto) 0.4 Neut % (Auto) 82.3 H Lymph % (Auto) 10.9 L [place] % (Auto) 5.8 Eos % (Auto) 0.3 Baso % (Auto) 0.3 Lymph # (Auto) 1.08 [place] # (Auto) 0.6 Eos # (Auto) 0.0 Baso # (Auto) 0.0 Abs Immat Gran (auto) 0.04 H Absolute Neuts (auto) 8.2 H Absolute Nucleated RBC 0.0 Nucleated RBC % 0.0 Sodium 134 L Potassium 3.6 Chloride 106 Carbon Dioxide 21 L Anion Gap 7 L BUN 8 Creatinine 0.50 L Estim Creat Clear Calc Not Reportable Estimated GFR > 60 Glucose 161 H Uric Acid 4.9 Calcium 8.6 Total Bilirubin 0.4 AST 19 ALT 16 Alkaline Phosphatase 136 H Total Protein 6.0 L Albumin 3.2 L Urine Color Dark yellow Urine Appearance Cloudy H Urine pH 5.5 Ur Specific [place] 1.034 Urine Protein 1+ H Urine Glucose (UA) 1+ H Urine Ketones Trace H Ur Blood (Man) 3+ H Urine Nitrate Negative Urine Bilirubin 1+ H Urine Urobilinogen 1.0 Ur Leukocyte Esterase Trace H Urine RBC >100 H Urine WBC 6-10 Ur Squamous Epith Cells Many H Urine Bacteria 4+ H Urine Casts 0-2 Urine Mucus Present U Random Total Protein 11 Urine Creatinine 425.8 Protein/Creat Ratio 2 0.03 Vital signs: Vital Signs - 24 hr 03/28/23 11:09 Pulse Rate 119 H Blood Pressure [Left Arm] 125/67
[2023-04-02 13:45] VITALS: BP 131/78; PULSE 106
== END 2023-06-26 23:59 | disposition home or self-care (01) ==
LOC: ANHOBOP 12:23
PROVIDERS: Visit Provider Obstetrics & Gynecology
DX: O26.893 Other specified pregnancy related conditions, third trimester (principal); R03.0 Elevated blood-pressure reading, without diagnosis of hypertension; Z3A.35 35 weeks gestation of pregnancy
CPT/HCPCS: 36415; 59025; 80053; 81001; 82570; 84156; 84550; 85025; 87086

== ENCOUNTER 2023-04-18 23:25 | Outpatient (CLI) | payer OTHER, SELFPAY ==
[2023-04-18 23:50] VITALS: BP 131/88; PULSE 90; TEMP 36.6
--- NOTE | 2023-04-18 23:50 | PC.NURSE ---
Pt here for PIH evaluation per MD order prior to arrival. Pt states she has had elevated blood pressures in and is taking Labetolol. States swelling of lower extremities has increased this evening.
[2023-04-19 00:01] VITALS: BP 137/78; PULSE 89
[2023-04-19 00:09] LABS: Basophils Percent Auto 0.4 % (0.2-1.2); Eosinophils Absolute Auto 0.1 K/mm3 (0-0.3); Eosinophils Percent Auto 0.9 % (0-4.4); Hematocrit 33.9 % (37.0-47.0); Hemoglobin 11.2 g/dL (12.0-15.0); Immature Granulocyte Absolute 0.04 K/mm3 (0.00-0.031); Immature Granulocyte Percent A 0.4 % (0-0.5); Lymphocytes Percent Auto 19.3 % (18.3-44.2); Mean Corpuscular Hemoglobin 30.2 pg (26-34); Mean Corpuscular Volume 91.4 fl (80-100); Mean Platelet Volume 10.5 fl (7.4-10.4); Monocytes Absolute Auto 0.9 K/mm3 (0.1-0.6); Monocytes Percent Auto 9.2 % (2.6-8.5); Neutrophils Absolute Auto 6.5 K/mm3 (1.3-6.7); Neutrophils Percent Auto 69.8 % (45.5-73.1); Platelet Count Result 313 k/mm3 (150-375); Red Blood Count 3.71 M/mm3 (4.2-5.4); Red Cell Distribution Width 13.2 % (11.5-14.5); White Blood Count 9.3 K/mm3 (4.5-10.0)
[2023-04-19 00:16] VITALS: BP 129/91; PULSE 91
[2023-04-19 00:16] LABS: Creatinine Urine 135.7 mg/dL; Total Protein Urine Random 20 mg/dL; Ur Ttl Prot Creatinine Ratio 0.15 mg/mg (0-0.20)
[2023-04-19 00:29] LABS: Alanine Aminotransferase 16 U/L (6-35); Albumin Level 3.5 g/dL (3.5-5.1); Alkaline Phosphatase 179 U/L (38-126); Anion Gap 6 mmol/L (8-16); Aspartate Amino Transferase 24 U/L (14-36); Bilirubin,Total 0.4 mg/dL (0.2-1.3); Blood Urea Nitrogen 11 mg/dL (7-17); Calcium 8.8 mg/dL (8.4-10.2); Carbon Dioxide 21 mmol/L (22-30); Chloride 108 mmol/L (98-107); Estimated Glomerular Filt Rate > 60; Glucose 103 mg/dL (65-110); Potassium 4.2 mmol/L (3.4-5.0); Sodium 135 mmol/L (137-145)
[2023-04-19 00:31] VITALS: BP 145/84; PULSE 86
[2023-04-19 00:37] LABS: Appearance Urine Cloudy (Clear); Bacteria Urine 1+ /hpf; Bilirubin Urine Negative (Negative); Blood Urine 1+ (Negative); Color Urine Yellow (Yellow); Glucose Urine UA Negative (Negative); Ketones Urine Negative (Negative); Leukocyte Esterase Ur Trace LEU/UL (NEGATIVE); Need Manual Microscopic Reviewed; Nitrate Urine Negative (Negative); Non Pathogenic Casts 0-2; Protein Urine Trace mg/dL (Negative); Specific Grav Ur 1.024 (1.001-1.035); Squamous Epithelial Cell Urine Moderate /hpf (Few); pH Urine 6.5 (5.0-9.0)
[2023-04-19 00:42] LABS: Add Urine Microscopic? YES
[2023-04-19 00:46] VITALS: BP 127/80; PULSE 88
[2023-04-19 01:00] VITALS: BP 131/88
--- NOTE | 2023-04-19 01:00 | PC.NURSE ---
Pt given Tylenol for headache. Rates as 3. NST reactive.
[2023-04-19] MEDS: ACETAMINOPHEN 325 MG TABLET 650 MG PO (01:05)
[2023-04-19 01:16] VITALS: BP 126/79; PULSE 90
--- NOTE | 2023-04-19 01:30 | PC.NURSE ---
Lab results called to Dr. Sapna Davidson. Pt to go to office for blood pressure check and for should check on Urine culture results Sunday.
--- NOTE | 2023-04-19 01:30 | PC.NURSE ---
DUY handout reviewed with pt.
== END 2023-04-19 01:30 | disposition home or self-care (01) ==
LOC: ANHOBOP 23:30 → ANHOBPP 23:31
PROVIDERS: Visit Provider Obstetrics & Gynecology
DX: O13.9 Gestational [pregnancy-induced] hypertension without significant proteinuria, unspecified trimester (principal); Z3A.00 Weeks of gestation of pregnancy not specified
CPT/HCPCS: 36415; 59025; 80053; 81001; 82570; 84156; 84550; 85025; 87086; 87088; 99199; A9270

== ENCOUNTER 2023-04-23 17:03 | Inpatient (IN) | payer OTHER, SELFPAY ==
[2023-04-23] VITALS (11 sets, daily range): BP systolic 95–127; BP diastolic 61–86; PULSE 93–120; RESP 14; TEMP 37; BMI 47.0
--- NOTE | 2023-04-23 17:03 | LDADM ---
This patient, Demi Bojorquez, was admitted to Labor/Delivery/Recovery 107 on 04/23/23 at 17:03. Plans for labor, pain management and were discussed with patient. Patient/family oriented to hospital policies and general routines including ID bracelet, bed and alarms, visiting hours, pain management, procedures, bathroom and other care routines, personal items, smoking policy, room service/diet and guest tray routines, infant security routines, and visiting hours. Patient/Family are encouraged to report perceived risks to care and to ask questions if they do not understand what they are told or what they should do. See OBIX for further documentation.
[2023-04-23 17:50] LABS: Basophils Percent Auto 0.3 % (0.2-1.2); Eosinophils Absolute Auto 0.1 K/mm3 (0-0.3); Eosinophils Percent Auto 0.7 % (0-4.4); Hematocrit 35.5 % (37.0-47.0); Hemoglobin 11.7 g/dL (12.0-15.0); Immature Granulocyte Absolute 0.05 K/mm3 (0.00-0.031); Immature Granulocyte Percent A 0.5 % (0-0.5); Lymphocytes Absolute Auto 1.59 K/mm3 (0.9-3.2); Lymphocytes Percent Auto 15.8 % (18.3-44.2); Mean Corpuscular Hemoglobin 29.8 pg (26-34); Mean Corpuscular Volume 90.6 fl (80-100); Mean Platelet Volume 10.3 fl (7.4-10.4); Monocytes Absolute Auto 0.7 K/mm3 (0.1-0.6); Monocytes Percent Auto 6.5 % (2.6-8.5); Neutrophils Absolute Auto 7.7 K/mm3 (1.3-6.7); Neutrophils Percent Auto 76.2 % (45.5-73.1); Platelet Count Result 327 k/mm3 (150-375); Red Blood Count 3.92 M/mm3 (4.2-5.4); Red Cell Distribution Width 13.3 % (11.5-14.5); White Blood Count 10.1 K/mm3 (4.5-10.0)
[2023-04-23] MEDS: DINOPROSTONE 10 MG VAG INSERT VAGINAL (17:59)
[2023-04-23 18:16] LABS: Alanine Aminotransferase 34 U/L (6-35); Albumin Level 3.5 g/dL (3.5-5.1); Alkaline Phosphatase 196 U/L (38-126); Anion Gap 10 mmol/L (8-16); Aspartate Amino Transferase 34 U/L (14-36); Bilirubin,Total 0.4 mg/dL (0.2-1.3); Blood Urea Nitrogen 11 mg/dL (7-17); Calcium 8.9 mg/dL (8.4-10.2); Carbon Dioxide 19 mmol/L (22-30); Chloride 106 mmol/L (98-107); Estimated CRCL calculation 129 ml/min; Estimated Glomerular Filt Rate > 60; Glucose 140 mg/dL (65-110); Potassium 3.6 mmol/L (3.4-5.0); Sodium 135 mmol/L (137-145); Uric Acid 5.7 mg/dL (2.5-7.5)
[2023-04-23 18:49] LABS: Creatinine Urine 299.8 mg/dL; Total Protein Urine Random 16 mg/dL; Ur Ttl Prot Creatinine Ratio 0.05 mg/mg (0-0.20)
[2023-04-23 19:00] LABS: Benzodiazepines Screen Urine Negative (Negative)
[2023-04-23 19:03] LABS: Barbiturate Screen Urine Negative (Negative)
[2023-04-23 19:05] LABS: Amphetamine Screen Urine Negative (Negative); Cannabinoid Screen Urine Negative (Negative); Cocaine Screen Urine Negative (Negative); Methadone Screen Urine Negative (Negative); Opiate Screen Urine Negative (Negative); Phencyclidine Screen Urine Negative (Negative)
--- NOTE | 2023-04-23 20:52 | WPDANESEPP ---
Anes - Eval Pre Procedure Procedure: labor epidural Date/Time: 04/23/23 20:52 Surgeon: angie Preop Diagnosis: pain during labor Pre Op Diagnosis: Induction of Labor Patient Data Age: 27 Gender: F Height: 1.68 m Weight: 132 kg Last Vital Signs Temp 37.0 C 04/23/23 18:20 Pulse 93 04/23/23 20:01 Resp 14 04/23/23 18:20 BP 120/69 04/23/23 20:01 Allergies Allergy/AdvReac Type Severity Reaction Status Date / Time No Known Allergies Allergy Verified 11/13/22 07:46 Home Medications Medication Instructions Recorded Confirmed Type labetalol 200 mg tablet 200 mg PO Q12H 04/02/23 04/02/23 History vit no.95-ferrous 1 tablet PO DAILY 04/02/23 04/02/23 History fumarate 28 mg-folic acid 800 mcg tablet () Laboratory Tests 04/23/23 17:37 WBC 10.1 H K/mm3 (4.5-10.0) RBC 3.92 L M/mm3 (4.2-5.4) Hgb 11.7 L g/dL (12.0-15.0) Hct 35.5 L % (37.0-47.0) MCV 90.6 fl (80-100) MCH 29.8 pg (26-34) MCHC 33.0 g/dl (32-36) RDW 13.3 % (11.5-14.5) Plt Count 327 k/mm3 (150-375) MPV 10.3 fl (7.4-10.4) Immature Gran % (Auto) 0.5 % (0-0.5) Neut % (Auto) 76.2 H % (45.5-73.1) Lymph % (Auto) 15.8 L % (18.3-44.2) [place] % (Auto) 6.5 % (2.6-8.5) Eos % (Auto) 0.7 % (0-4.4) Baso % (Auto) 0.3 % (0.2-1.2) Lymph # (Auto) 1.59 K/mm3 (0.9-3.2) [place] # (Auto) 0.7 H K/mm3 (0.1-0.6) Eos # (Auto) 0.1 K/mm3 (0-0.3) Baso # (Auto) 0.0 K/mm3 (0.0-0.1) Abs Immat Gran (auto) 0.05 H K/mm3 (0.00-0.031) Absolute Neuts (auto) 7.7 H K/mm3 (1.3-6.7) Absolute Nucleated RBC 0.0 K/mm3 (0.0-0.012) Nucleated RBC % 0.0 % (0.0-0.2) Sodium 135 L mmol/L (137-145) Potassium 3.6 mmol/L (3.4-5.0) Chloride 106 mmol/L (98-107) Carbon Dioxide 19 L mmol/L (22-30) Anion Gap 10 mmol/L (8-16) BUN 11 mg/dL (7-17) Creatinine 0.80 mg/dL (0.7-1.0) Estim Creat Clear Calc 129 ml/min Estimated GFR > 60 (59 - ) Glucose 140 H mg/dL (65-110) Uric Acid 5.7 mg/dL (2.5-7.5) Calcium 8.9 mg/dL (8.4-10.2) Total Bilirubin 0.4 mg/dL (0.2-1.3) AST 34 U/L (14-36) ALT 34 U/L (6-35) Alkaline Phosphatase 196 H U/L (38-126) Total Protein 7.0 g/dL (6.3-8.2) Albumin 3.5 g/dL (3.5-5.1) U Random Total Protein 16 mg/dL Urine Creatinine 299.8 mg/dL Protein/Creat Ratio 2 0.05 mg/mg (0-0.20) Urine Opiates Screen Negative (Negative) Urine Methadone Screen Negative (Negative) Ur Barbiturates Screen Negative (Negative) Ur Phencyclidine Scrn Negative (Negative) Ur Amphetamine Screen Negative (Negative) U Benzodiazepines Scrn Negative (Negative) Urine Cocaine Screen Negative (Negative) U Cannabinoids Screen Negative (Negative) RPR Pending Blood Type O Positive Antibody Screen Negative Patient hx anesthesia problems: none Family hx anesthesia problems: none Results Review: All pre-operative results and documents have been reviewed as part of the pre-operative evaluation. [facility] Past Medical History Medical History (Updated 04/23/23 @ 20:53 by Sharla Cordero CRNA) Kidney stones Morbid obesity with BMI of 45.0-49.9, adult PIH ( induced hypertension) Pseudotumor cerebri Seizure x1 after lap monique Surgical History Surgical History History of cholecystectomy Family History Family History (Updated 04/02/23 @ 12:59 by Abel Madrigal RN) Mother Kidney stones Father Kidney failure Diabetes mellitus Hypertension Social History Social History Smoking packs per day: 0.5 Smoking cigarettes per day: 10.0 Years smoked: 4 Smoking pack-years: 2.00 Smoking status: Current some da
[2023-04-24] VITALS (204 sets, daily range): BP systolic 99–160; BP diastolic 51–100; PULSE 79–125; RESP 16–18; TEMP 36.3–37.3; O2SAT 96–100
[2023-04-24] MEDS: OXYTOCIN 30 UNITS/NS 500 ML 30 UNITS/500 ML BAG 6 UNITS IV CONT (05:29)
[2023-04-24] MEDS: LACTATED RINGERS 1,000 ML 125 ML IV CONT ×2 (05:29→15:44)
--- NOTE | 2023-04-24 05:56 | PM.IMHP ---
H&P: HPI History of Present Illness Date/Time: 04/24/23 05:56 Chief Complaint: She will hypertension at term Narrative: 27-year-old 1 para 0 last menstrual period was 07/26/2022, EDC is 05/02/2023, presents at 39 weeks gestation for induction of labor at term. Blood pressures have been elevated PIH labs are normal PMFSH Past Medical History Medical History Kidney stones Morbid obesity with BMI of 45.0-49.9, adult PIH ( induced hypertension) Pseudotumor cerebri Seizure x1 after lap monique Surgical History Surgical History History of cholecystectomy Family History Family History Mother Kidney stones Father Kidney failure Diabetes mellitus Hypertension Social History Social History Smoking packs per day: 0.5 Smoking cigarettes per day: 10.0 Years smoked: 4 Smoking pack-years: 2.00 Smoking status: Current some day smoker Tobacco type: cigarettes Alcohol intake: never Substance use: never Substance use type: does not use Lack of Transportation: No Lack of Food: Never True Current Housing: I Have Housing Concerned About Future Housing: No Difficulty Paying Gas/Electric Bills: No Difficulty Paying for Meds: No Currently Unemployed: No Education: High School Diploma/GED Difficulty w/ Childcare or Family Care: No Living arrangements: with family Spiritual care concerns: No Meds Home Medications and Allergies Home Medications Medication Instructions Recorded Confirmed Type labetalol 200 mg tablet 200 mg PO Q12H 04/02/23 04/02/23 History vit no.95-ferrous 1 tablet PO DAILY 04/02/23 04/02/23 History fumarate 28 mg-folic acid 800 mcg tablet () Allergies Allergy/AdvReac Type Severity Reaction Status Date / Time No Known Allergies Allergy Verified 11/13/22 07:46 Vital Signs Vital Signs - 24 hr 04/23/23 17:43 04/23/23 18:01 04/23/23 18:16 Temperature Pulse Rate 120 H 119 H 118 H Respiratory Rate Blood Pressure 106/77 127/86 127/85 Pulse Oximetry 04/23/23 18:20 04/23/23 18:32 04/23/23 18:46 Temperature 98.6 F Pulse Rate 101 H 100 Respiratory Rate 14 Blood Pressure 95/61 L 105/75 Pulse Oximetry 04/23/23 19:01 04/23/23 19:16 04/23/23 19:31 Temperature Pulse Rate 95 94 94 Respiratory Rate Blood Pressure 123/69 126/78 123/72 Pulse Oximetry 04/23/23 19:46 04/23/23 20:01 04/24/23 00:03 Temperature Pulse Rate 95 93 Respiratory Rate Blood Pressure 112/65 120/69 Pulse Oximetry 100 04/24/23 00:04 04/24/23 05:03 04/24/23 05:04 Temperature 97.8 F 97.4 F L Pulse Rate 87 80 Respiratory Rate 18 16 Blood Pressure 130/90 141/89 H Pulse Oximetry 99 04/24/23 05:31 Temperature Pulse Rate 90 Respiratory Rate Blood Pressure 144/98 H Pulse Oximetry Exam Const: General: cooperative, healthy appearing and comfortable Nutritional Appearance: average body habitus Orientation/consciousness: oriented to person, oriented to place and oriented to time HENMT: Head: normal to inspection Resp: Effort & Inspection: normal respiratory effort Cardio: Rate: regular rate Rhythm: regular rhythm Heart sounds: S1 normal heart sound present and S2 normal heart sound present GI: Inspection: normal to inspection ( gravid soft uterus) : External Female Exam: normal external appearance Speculum Exam - Vagina: normal appearance of the vagina Speculum Exam - Cervix: normal appearance of the cervix ( cervix 2/ 50/-2. AROM clear with light meconium. FHTs reassuring) H&P: Results Labs Labs: Short CBC 04/23/23 Range/Units 17:37 WBC 10.1 H (4.5-10.0) K/mm3 Hgb 11.7 L (12.0-15.0) g/dL Hct 35.5 L (37.0-47.0) %
[2023-04-24] MEDS: LABETALOL HCL 100 MG TABLET 200 MG PO (06:55)
--- NOTE | 2023-04-24 10:54 | PC.NURSE ---
1013 - Introductions were made and mother shared how she would like to feed her baby with . Encouraged mother to place infant [id number] until the first feeding if is stable and to wait on the weight to help stabilize, reduce infant stress, and improve latching by allowing time to explore parent's chest using instincts. Education was shared on how to protect her milk supply with latching and/or using hand expression to remove milk if doesn't latch in the first hour, then finger feed colostrum to the to preserve breast focus. Demonstration given on how to hand express using tool and resources provided with educational trifold for bonding and feeding . Parents voiced understanding of information and to call if there is a request for assistance.
[2023-04-24] MEDS: fentaNYL CITRATE INJ (*CRX) 100 MCG/2 ML VIAL 50 MCG IV PUSH (12:27)
[2023-04-24 13:25] LABS: Rapid Plasma Reagin Non-Reactive (NonReactive)
[2023-04-24] MEDS: fentaNYL CITRATE INJ (*CRX) 100 MCG/2 ML VIAL IV PUSH (13:57)
--- NOTE | 2023-04-24 15:57 | PM.OBPNLAB ---
Pain Control Date/time seen: 04/24/23 15:57 Pain control: tolerating well Pelvic Exam Dilation (cm): 2 Effacement (%): 50 station: -2 Amniotic membrane status: Leaking
[2023-04-24] MEDS: ONDANSETRON INJ 4 MG/2 ML VIAL IV PUSH (17:14)
[2023-04-24] MEDS: ACETAMINOPHEN 500 MG TABLET 1000 MG PO (19:34)
[2023-04-25] VITALS (136 sets, daily range): BP systolic 65–146; BP diastolic 20–92; PULSE 89–181; RESP 15–24; TEMP 36.4–38.4; O2SAT 81–100
[2023-04-25] MEDS: LACTATED RINGERS 1,000 ML 125 ML IV CONT ×2 (00:12→04:24)
[2023-04-25] MEDS: AMPICILLIN 2 GM/NS 100 ML 2 GM/100 ML BAG IVPB (00:13)
[2023-04-25] MEDS: ACETAMINOPHEN 500 MG TABLET 1000 MG PO (01:51)
[2023-04-25] MEDS: ONDANSETRON INJ 4 MG/2 ML VIAL IV PUSH ×2 (02:02→17:07)
[2023-04-25] MEDS: LABETALOL HCL 100 MG TABLET 200 MG PO (02:46)
[2023-04-25] MEDS: AMPICILLIN 1 GM/NS 50 ML 1 GM/50 ML BAG IVPB (04:24)
--- NOTE | 2023-04-25 05:23 | PM.OBPNLAB ---
Pain Control Date/time seen: 04/25/23 05:23 Pain control: tolerating well and epidural Comments: no change. fhts ok. offered section. reviewed Pelvic Exam Dilation (cm): 4 Effacement (%): 50 station: -2 Amniotic membrane status: Leaking
[2023-04-25] MEDS: ceFAZolin 3 GM/D5W 100 ML 100 ML IVPB (05:33)
[2023-04-25] MEDS: AZITHROMYCIN 500 MG/NS 250 ML 500 MG/250 ML BAG 250 MG IVPB (05:41)
--- NOTE | 2023-04-25 06:13 | W.PM.PROC2 ---
Procedure Note - Detailed Date of Procedure 04/25/23 Pre-op Diagnosis Induction of Labor/ failure to progress /gestational hypertension Post-op Diagnosis Same Procedure Performed low-transverse section Surgeon Josue Davidson MD Anesthesia Epidural Indications / 27-year-old female with pressure at term with failure to progress. She progressed to about 4cm. She had adequate contractions via IUPC and in light of the lack of change in prolonged rupture of membranes with adequate contractions she was offered section Findings male infant 9lb 5oz Apgars 891 and 5minutes respectively. Normal-appearing ovaries uterus tubes Description of Procedure patient was taken the back after obtaining informed consent prepped draped normal sterile fashion placed in the supine position. Under excellent epidural anesthesia the abdomen was entered in Pfannenstiel fashion progressive layers of fascia. Fascia incised midline carried in upward outward fashion. Underlying muscles were sharply dissected. Parietal peritoneum entered by No clamps and by sharp dissection carried. This was carried superior and inferiorly dome bladder. Bladder blade placed. Bladder flap formed. Blade returned. Low transverse incision made the head delivered ERICK position. Anterior posterior shoulder delivered spontaneously. Cord clamped x2 and cut passed off the table given Apgars of 8 at 1 and 5minutes. Cord blood was drawn placenta delivered intact manually. . Uterus delivered from abdomen wrapped in moist towel. After assuring no membranes or debris remained in uterus, the uterus closed with continuous running locking 0 Vicryl edge edge. This followed by 2nd imbricating running locking 0 Vicryl from lateral edge to lateral edge. Hemostasis was assured. Ovaries and tubes appeared within normal limits and the hysterotomy incision appeared intact. This the uterus was returned the abdomen an clots and debris removed from the abdomen laps removed and accounted for and the hysterotomy incision SPECT of 1 last time noted be hemostatic. The fascia closed with continuous running 0 Vicryl from lateral edge to midline bilaterally. Irrigation subcutaneous layer and the skin closed with 4 Monocryl and glue blood loss but was 305 QBL. All sponge, needle, instrument counts were correct. Mom and baby time finding the time dictation Estimated Blood Loss 305 Drains No Packing No Pathology None sent Complications No immediate complications Condition Stable Disposition Floor
--- NOTE | 2023-04-25 08:38 | OBPPTRN ---
Patient transferred to post room # 292 via stretcher and moved to bed via maxi air without difficulty. PT arrived on unit accompanied by fob and infant in open crib. PT introductions made and plan of care discussed per post op c section, pain management, breast feeding and daily care activities. PT and fob both recipients of such instructions and no barriers to learning identified at this time. PT received such instructions per one to one discussion, mom baby care guide and demonstrations this shift. Oriented to unit, room, information board, rooming in, admission packet and security measures. Patient verbalizes understanding.
[2023-04-25] MEDS: DEXTROSE 5%/0.45% SOD CHL 1,000 ML 125 ML IV CONT (09:55)
[2023-04-25] MEDS: LIDOCAINE 5% PATCH 1 PATCH TRANSDERM (09:55)
[2023-04-25] MEDS: HYDROcodone/acetaminophen (*CRX) 5-325 MG TABLET 1 TAB PO ×3 (10:04→18:08)
[2023-04-25] MEDS: LANOLIN (LANSINOH) 7.5 GM CREAM 1 APPLIC TOPICAL (10:06)
--- NOTE | 2023-04-25 12:08 | PC.NURSE ---
[id number] Consulted related to being call due to infant not latching in recovery (rm. 119) after separation and one hour of [id number]. Encouraged understanding of the benefits of skin to skin (demonstrating unwrapping and placing upright on her chest), stimulating with massage touch, changing positions to encourage wakefulness, how to watch for early feeding cues, responsive feeding, feeding on demand (aiming for 8-12 times in 24 hours, about every 2-3 hours), milk production, hand expression, building/maintaining a milk supply, duration of feeding, signs of adequate intake/output and how to record on the feeding sheet. Practiced hand expression and there was no colostrum removed. Visualized a round bleb that is whit/yellow in color on the tip of mothers right nipple. Mother states that appeared during . Possible milk bleb we will apply warm, wet compress to the nipple to see if the site will clear. Mother is in a laid-back position recovering from a section. Infant rarely demonstrates feeding cues, however; when infant does the breast is offer holding the breast using the scissor technique. doesn't latch to the breast and goes to sleep. Blood sugar is resulted at 54mg/dl at this time. Encouraged mother to stimulate her breast with hand expression, keep infant [id number] to encourage instincts to be practiced, stimulating every couple of hours to attempt to breastfeed. Nipple care reviewed with optimal latch and good positioning. Reminding mother of comfort measures of healing with a warm and wet washcloth to rinse breast, then leave open to air-dry as needed. Reviewed good handwashing when or touching the breast/nipples to prevent infection. Mother voiced understanding of information and to call if does not latch, or if there is discomfort with once she arrives to the post floor. Reported to the Nursery RN.
[2023-04-25] MEDS: KETOROLAC 30 MG/ML VIAL (*BKC) IV PUSH (13:57)
[2023-04-25] MEDS: SIMETHICONE 80 MG TAB.CHEW PO ×2 (13:58→18:07)
--- NOTE | 2023-04-25 14:00 | PC.NURSE ---
Breast pump provided due to ineffective feedings 8 hours after . Have attempted hand expression but no colostrum. Instructions given on cleaning, care, usage, that there should be no pain, pumping schedule for milk production, collection, and storage of human milk. Parents are encouraged to record pumping schedule on the [feeding sheet/pumping log]. Patient was assessed for correct placement, flange size, to pump for comfort and nipple stretching/stimulation for adequate milk production every 3 hours (8 times in 24 hours) 1-2 times at night. Mother voiced understanding of the education shared along with mom and baby guide for additional resource information. Reported to the primary RN.
[2023-04-25] MEDS: DOCUSATE SODIUM 100 MG CAPSULE PO (18:07)
[2023-04-25] MEDS: POLYSACCHARIDE IRON COMPLEX 150 MG CAPSULE PO (18:07)
[2023-04-25] MEDS: IBUPROFEN 600 MG TABLET PO (18:08)
[2023-04-25] MEDS: HYDROcodone/acetaminophen (*CRX) 10-325 MG TABLET 1 TAB PO (21:56)
[2023-04-26 04:16] VITALS: BP 123/69; PULSE 96; RESP 18; TEMP 36.7
[2023-04-26 05:13] LABS: Basophils Absolute Auto 0.1 K/mm3 (0.0-0.1); Basophils Percent Auto 0.4 % (0.2-1.2); Eosinophils Absolute Auto 0.1 K/mm3 (0-0.3); Eosinophils Percent Auto 0.4 % (0-4.4); Hematocrit 28.2 % (37.0-47.0); Hemoglobin 8.9 g/dL (12.0-15.0); Immature Granulocyte Absolute 0.11 K/mm3 (0.00-0.031); Immature Granulocyte Percent A 0.6 % (0-0.5); Immature Platelet Fraction Pct 4.8 % (0.9-11.2); Lymphocytes Absolute Auto 1.46 K/mm3 (0.9-3.2); Lymphocytes Percent Auto 8.2 % (18.3-44.2); Mean Corpuscular HGB Conc 31.6 g/dl (32-36); Mean Corpuscular Hemoglobin 29.1 pg (26-34); Mean Corpuscular Volume 92.2 fl (80-100); Mean Platelet Volume 10.7 fl (7.4-10.4); Monocytes Absolute Auto 1.1 K/mm3 (0.1-0.6); Monocytes Percent Auto 5.9 % (2.6-8.5); Neutrophils Absolute Auto 15.1 K/mm3 (1.3-6.7); Neutrophils Percent Auto 84.5 % (45.5-73.1); Platelet Count Result 251 k/mm3 (150-375); Red Blood Count 3.06 M/mm3 (4.2-5.4); Red Cell Distribution Width 13.6 % (11.5-14.5); White Blood Count 17.8 K/mm3 (4.5-10.0)
--- NOTE | 2023-04-26 07:29 | PM.DS ---
DS: Admitting Diagnosis Discharge Date Admitting Diagnosis Term /gestational hypertension DS: Discharge Diagnosis Discharge Diagnosis (1) PIH ( induced hypertension): Code(s): O13.9 - Gestational [-induced] hypertension without significant proteinuria, unspecified trimester Status: Acute (2) Morbid obesity with BMI of 45.0-49.9, adult: Code(s): E66.01 - Morbid (severe) obesity due to excess calories; Z68.42 - Body mass index [BMI] 45.0-49.9, adult Status: Acute DS: Summary Hospital Course Reason for hospitalization: induction of labor at term secondary to elevated blood pressures Hospital Course: this is a 27-year-old primipara who was admitted for induction of labor. She did not progress and underwent low-transverse section. She had elevated blood pressures but they remained normal post . Her hospital course unremarkable she remained afebrile. She was up, voiding without difficulty, eating regular diet, ambulating, generally without complaints. As noted her blood pressures remained stable without labetalol Time Spent with Patient Time attestation: Total time spent providing and/or coordinating discharge services: Exam Const: General: cooperative, healthy appearing and comfortable Nutritional Appearance: overweight Orientation/consciousness: oriented to person, oriented to place and oriented to time HENMT: Head: normal to inspection Resp: Effort & Inspection: normal respiratory effort Cardio: Rate: regular rate Rhythm: regular rhythm Heart sounds: S1 normal heart sound present and S2 normal heart sound present GI: Inspection: normal to inspection and incision ( wound is clean dry and intact) DS: Data Data Completed and Pending Labs on day of discharge: Labs from last 24 hours 04/26/23 03:22 WBC 17.8 H RBC 3.06 L Hgb 8.9 L Hct 28.2 L MCV 92.2 MCH 29.1 MCHC 31.6 L RDW 13.6 Plt Count 251 MPV 10.7 H Immature Gran % (Auto) 0.6 H Neut % (Auto) 84.5 H Lymph % (Auto) 8.2 L [place] % (Auto) 5.9 Eos % (Auto) 0.4 Baso % (Auto) 0.4 Lymph # (Auto) 1.46 [place] # (Auto) 1.1 H Eos # (Auto) 0.1 Baso # (Auto) 0.1 Abs Immat Gran (auto) 0.11 H Absolute Neuts (auto) 15.1 H Absolute Nucleated RBC 0.0 Nucleated RBC % 0.0 % Immature Plt Fraction 4.8 Discharge Plan Discharge Attending physician on discharge: Josue Myers Discharging Clinician: Josue Myers Patient Disposition: Home, Self-Care Activity: may shower, no straining, may drive after 2 weeks and pelvic rest Diet: heart healthy Wound Care Instructions: follow printed instructions Patient Instructions: Antibiotic Form Stand Alone Forms: General Discharge Information Follow-up/Referrals: Josue Myers MD [Physician] - Discharge Medications: New hydrocodone-acetaminophen 5-325 mg tablet 1 tablet PO Q4H PRN (Reason: pain) Qty: 30 0RF Continued labetalol 200 mg Tablet 200 mg PO Q12H PNV cmb#95-ferrous fumarate-FA [] 28 mg iron- 800 mcg Tablet 1 tablet PO DAILY Date of admission: 04/23/23 17:03 Primary Care Provider: PHYSICIAN,LOADING R[employer] SUPERVISOR Admitting Provider: Josue Myers Attending physician on admission: Josue Myers Condition: Stable
--- NOTE | 2023-04-26 07:31 | P.PNOB_ITS ---
OB - PN: Subj Subjective Date/time seen: 04/26/23 07:31 Patient comments: no complaints and pain well controlled baby status: doing well and nursing well OB - PN: Obj Data Labs 04/26/23 03:22 04/23/23 17:37 Labs: Laboratory Results - last 24 hr 04/26/23 03:22 WBC 17.8 H RBC 3.06 L Hgb 8.9 L Hct 28.2 L MCV 92.2 MCH 29.1 MCHC 31.6 L RDW 13.6 Plt Count 251 MPV 10.7 H Immature Gran % (Auto) 0.6 H Neut % (Auto) 84.5 H Lymph % (Auto) 8.2 L [place] % (Auto) 5.9 Eos % (Auto) 0.4 Baso % (Auto) 0.4 Lymph # (Auto) 1.46 [place] # (Auto) 1.1 H Eos # (Auto) 0.1 Baso # (Auto) 0.1 Abs Immat Gran (auto) 0.11 H Absolute Neuts (auto) 15.1 H Absolute Nucleated RBC 0.0 Nucleated RBC % 0.0 % Immature Plt Fraction 4.8 OB - PN A/P Plan day: 1 Plan: routine care Time Spent With Patient Time: Total time spent is greater than 50% in coordination of care (as documented) at patient's floor/unit and/or counseling patient: Time with patient: less than 15 minutes Exam Const: General: cooperative, healthy appearing and comfortable Orientation/consciousness: oriented to person, oriented to place and oriented to time Resp: Effort & Inspection: normal respiratory effort Cardio: Rate: regular rate Rhythm: regular rhythm Heart sounds: S1 normal heart sound present and S2 normal heart sound present GI: Inspection: normal to inspection ( fundus firm below the umbilicus) and incision ( incision clean dry and intact)
--- NOTE | 2023-04-26 07:50 | WPDANLDPN2 ---
Anes-Prog Note L&D Date/Time: 04/26/23 07:50 Comfortable throughout: section Neuraxial method: epidural Epidural/Spinal procedure site: clean & non-tender Neuro status: Neuro function grossly intact. Cardiovascular status: normal Respiratory status: normal Airway patency: baseline Mental status: baseline Post-Op hydration status: normal Vital Signs: Last Vital Signs Temp 36.7 C 04/26/23 04:16 Pulse 96 04/26/23 04:16 Resp 18 04/26/23 04:16 BP 123/69 04/26/23 04:16 Pulse Ox 99 04/25/23 14:00 O2 Del Method Room Air 04/26/23 04:13 Pain score (VAS): 3/10 I/O: Intake & Output 04/25/23 04/25/23 04/26/23 15:59 23:59 07:59 Intake Total 1080 3480 Output Total 975 950 Balance 105 2530 Post-procedural complaints: none Patient feedback: Patient satisfied with anesthetic care.
--- NOTE | 2023-04-26 07:50 | WPDANLDNPN2 ---
Anes-Prog Note L&D-Neuraxial Date/Time: 04/26/23 07:50 Patient feedback: Patient satisfied with post-operative pain management. Comments: No epidrual narcotic given during case.
--- NOTE | 2023-04-26 08:00 | PC.NURSE ---
PT introductions made and plan of care discussed per post op c section, breast feeding, pumping and bottle feeding, pain management, daily care activities. PT sole recipient of such instructions and no barriers to learning identified at this time. PT received instructions via one to one discussion, mom baby care guide and demonstration this shift. PT verbalized understanding of such care.
[2023-04-26 09:10] VITALS: BP 128/86; PULSE 112; RESP 16; TEMP 36.6; O2SAT 99
[2023-04-26] MEDS: HYDROcodone/acetaminophen (*CRX) 10-325 MG TABLET 1 TAB PO ×2 (09:58→20:00)
[2023-04-26] MEDS: IBUPROFEN 600 MG TABLET PO ×2 (09:59→16:52)
[2023-04-26] MEDS: DOCUSATE SODIUM 100 MG CAPSULE PO ×2 (10:00→16:53)
[2023-04-26] MEDS: POLYSACCHARIDE IRON COMPLEX 150 MG CAPSULE PO ×2 (10:00→16:53)
[2023-04-26] MEDS: MULTIVIT/MIN/PREN/FOL AC/IRON TABLET 1 TAB PO (10:00)
[2023-04-26] MEDS: SIMETHICONE 80 MG TAB.CHEW PO ×2 (10:01→13:43)
[2023-04-26 10:02] VITALS: PULSE 112; RESP 16; O2SAT 99
[2023-04-26] MEDS: LIDOCAINE 5% PATCH 1 PATCH TRANSDERM (10:02)
--- NOTE | 2023-04-26 13:19 | PC.NURSE ---
[id number] Purposefully rounded to assess needs as Primary RN reported this morning that patient is doing the feeding plan. There had been no request for assistance today. Mother is attempting, pumping and supplementing. Visitors are in the room holding the swaddled and the parents are beginning to eat lunch. Resources provided and name was written on the communication board. Reported to the Primary RN.
[2023-04-26] MEDS: HYDROcodone/acetaminophen (*CRX) 5-325 MG TABLET 1 TAB PO ×2 (13:43→16:52)
[2023-04-26 19:36] VITALS: BP 127/88; PULSE 114; RESP 16; TEMP 36.8; O2SAT 100
[2023-04-27] MEDS: HYDROcodone/acetaminophen (*CRX) 10-325 MG TABLET 1 TAB PO (03:57)
[2023-04-27] MEDS: IBUPROFEN 600 MG TABLET PO ×2 (03:57→11:00)
--- NOTE | 2023-04-27 08:35 | P.PNOB_ITS ---
OB - PN: Subj Subjective Date/time seen: 04/27/23 08:35 Patient comments: no complaints and pain well controlled baby status: doing well and nursing well OB - PN: Obj Data Labs 04/26/23 03:22 04/23/23 17:37 OB - PN A/P Plan day: 2 Plan: routine care, discharge home and follow up 6 weeks ( 4 weeks) Time Spent With Patient Time: Total time spent is greater than 50% in coordination of care (as documented) at patient's floor/unit and/or counseling patient: Time with patient: less than 15 minutes Exam Const: General: cooperative, healthy appearing and comfortable Nutritional Appearance: average body habitus Orientation/consciousness: oriented to person, oriented to place and oriented to time HENMT: Head: normal to inspection Resp: Effort & Inspection: normal respiratory effort Cardio: Rate: regular rate Rhythm: regular rhythm Heart sounds: S1 no rmal heart sound present and S2 normal heart sound present GI: Inspection: normal to inspection and incision ( clear urine intact)
--- NOTE | 2023-04-27 08:37 | PC.NURSE ---
[id number] - Requested Dr. Sapna Davidson to assess possible bleb on the right nipple.
[2023-04-27 08:50] VITALS: BP 132/82; PULSE 102; RESP 20; TEMP 37.3; O2SAT 100
[2023-04-27] MEDS: MULTIVIT/MIN/PREN/FOL AC/IRON TABLET 1 TAB PO (11:00)
[2023-04-27] MEDS: POLYSACCHARIDE IRON COMPLEX 150 MG CAPSULE PO (11:00)
[2023-04-27] MEDS: DOCUSATE SODIUM 100 MG CAPSULE PO (11:00)
[2023-04-27] MEDS: HYDROcodone/acetaminophen (*CRX) 5-325 MG TABLET 1 TAB PO (11:01)
[2023-04-27] MEDS: MEASLES,MUMPS,RUBELLA VACCINE 0.5 ML VIAL SUB-Q (11:23)
--- NOTE | 2023-04-27 11:51 | PC.NURSE ---
[id number] Purposefully rounded to assess for /pumping needs. Patient states Dr. Sapna Davidson assessed the right nipple and states it shouldn't be a problem. Mother declines assistance to latch her infant to the breast. is demonstrating feeding cues. Mother states infant is fussy and may have gotten use to the quick fill of the bottle and is now frustrated at the breast. Breast pump was provided by the Primary RN prior to today due to ineffective latching and had started the plan. RN reviewed there is to be no pain and requested a flange assessment for an ideal fitting. Patient was assessed for correct placement, flange size (measured for 19-20mm), to pump for comfort and nipple stretching/stimulation for adequate milk production every 3 hours (8 times in 24 hours) 1-2 times at night. Mother has a small skin separation to the areola on the left breast. Reviewed with mother the correct flange use, what it is to look like, frequency of milk removal more than increasing the power of the pump. Instruction was complimented with a visual handout of pump fitting. Mother states she has a measuring tool at home that came with her home pump. Encouraged and reviewed with mother to call for assistance, ask questions, use her resources and where to find those resources. Mother voiced understanding of the education shared along with mom and baby guide for additional resource information. Reported to the primary RN.
[2023-04-28 09:17] VITALS: BP 153/94; PULSE 79; RESP 18; TEMP 36.6; O2SAT 100
== END 2023-04-27 12:55 | disposition home or self-care (01) | DRG 540 ==
LOC: ANHLDR 04-25 05:25 → ANHOB2 04-25 08:47
PROVIDERS: Admitting Provider Obstetrics & Gynecology; Visit Provider Obstetrics & Gynecology
PROC: 10D00Z1 Extraction of Products of Conception, Low, Open Approach (ICD-10-PCS; CPT 59514; principal; 2023-04-25 05:05)
DX: O13.4 Gestational [pregnancy-induced] hypertension without significant proteinuria, complicating childbirth (principal); E66.01 Morbid (severe) obesity due to excess calories; Z37.0 Single live birth; Z3A.39 39 weeks gestation of pregnancy; O99.214 Obesity complicating childbirth; O77.0 Labor and delivery complicated by meconium in amniotic fluid; O42.013 Preterm premature rupture of membranes, onset of labor within 24 hours of rupture, third trimester; O62.1 Secondary uterine inertia
CPT/HCPCS: 36415; 80053; 80307; 82570; 84156; 84550; 85025; 85055; 86592; 86850; 86900; 86901; 90710; A9270; J0290; J0456; J0690; J1885; J2274; J2405; J2590; J2795; J3010; J7120

== ENCOUNTER 2023-05-02 19:53 | Emergency (ER) | payer OTHER, SELFPAY ==
--- NOTE | ~2023-05-02 | CT_ITS ---
EXAMINATION: CT abdomen pelvis w con DATE: 05/02/2023 22:15 INDICATION: Left lower quadrant abdominal pain after section on April 25, 2023 TECHNIQUE: Computed tomography (CT) of the abdomen and pelvis was performed with 100 CC Omnipaque 350 intravenous contrast. Automated exposure control and iterative reconstruction technique were employe d. Exam dose: 1541.84 mGy-cm total exam DLP. COMPARISON: None. FINDINGS: The lung bases are clear. Normal heart size. No pericardial or pleural effusion. Very small sliding hiatal hernia. Status post cholecystectomy. The liver, spleen, pancreas, adrenal glands are unremarkable. No renal space-occupying mass lesion is detected. There are bilateral renal calculi, 3 on the right, measuring up to approximately 6 mm maximal dimensi on, 3 on the left measuring up to approximately 4.5 mm maximal dimension. No hydronephrosis of either kidney. No definite calculi. Some pelvic calcifications are most likely c alcified pelvic phleboliths. If there is strong concern for possible ureteral calculus, consider repe at examination with delayed images after intravenous administration of intravenous contrast material. There is thickening of the urinary bladder and pericystic fat stranding suggesting cystitis. There is prominence of the uterus consistent with state. Normal appendix. No bowel obstruction, bowel wall thickening, pneumatosis or intraperitoneal free air . Normal caliber of the abdominal aorta. No intraperitoneal or retroperitoneal or pelvic mass lesion or adenopathy or ascites. Postoperative changes of the anterior pelvic wall. Included skeletal structures are unremarkable. IMPRESSION: Bilateral nephrolithiasis No apparent urinary tract obstruction or hydronephrosis. Probable pelvic calcified phleboliths. If there is clinical concern for possible ureteral calculus, c onsider repeat CT abdomen pelvis delayed views after intravenous contrast material administration Thickening of the urinary bladder wall, pericystic fat stranding, suggesting cystitis Enlarged uterus consistent with state Status post cholecystectomy Normal appendix Reviewed, dictated and finalized at [facility]. Reviewed, dictated and finalized at [facility]. IMPRESSION: Bilateral nephrolithiasis No apparent urinary tract obstruction or hydronephrosis. Probable pelvic calcified phleboliths. If there is clinical concern for possibl e ureteral calculus, consider repeat CT abdomen pelvis delayed views after intr avenous contrast material administration Thickening of the urinary bladder wall, pericystic fat stranding, suggesting cy stitis Enlarged uterus consistent with state Status post cholecystectomy Normal appendix
[2023-05-02 20:04] VITALS: BP 152/90; PULSE 93; RESP 18; TEMP 36.3; O2SAT 100
[2023-05-02 20:51] VITALS: BP 148/91; PULSE 77; RESP 16; O2SAT 100; O2SAT 99
[2023-05-02 21:01] VITALS: BP 144/90; O2SAT 99
--- NOTE | 2023-05-02 21:05 | ED.GENADULT ---
HPI - General Adult General Chief complaint: Unspecified <DERRICK Welch Last Filed: 05/03/23 04:07> Stated complaint: 1 week ago, bleeding <DERRICK Welch Last Filed: 05/03/23 04:07> Time Seen by Provider: 05/02/23 20:57 <DERRICK Welch Last Filed: 05/03/23 04:07> History of Present Illness HPI narrative: 27-year-old female reports to the emergency department for blood coming from her incision site. Patient had an uncomplicated on 04/[address] Chambers. She has not had any complications since, however this morning noticed blood coming from the left side of her incision site that soaked through her underwear and pants and then dripped down her leg. Patient states she called Dr. Chambers's office and was advised to come to the ED. She does report sharp sensation in her left lower quadrant and suprapubic region that started at the onset of the blood. The bleeding resolved prior to arriving to the ED. She denies nausea or vomiting, fever, chest pain or shortness of breath, lightheadedness, back pain, urinary complaints, vaginal discharge. She does report vaginal bleeding that has been unchanged since the operation. States she changes her pad once every 3 hours. <DERRICK Welch Last Filed: 05/03/23 04:07> Related Data Home medications: Home Medications Medication Instructions Recorded Confirmed labetalol 200 mg tablet 200 mg PO Q12H 04/02/23 04/02/23 vit no.95-ferrous 1 tablet PO DAILY 04/02/23 04/02/23 fumarate 28 mg-folic acid 800 mcg tablet () <DERRICK Welch Last Filed: 05/03/23 04:07> Allergies/adverse reactions: Allergies Allergy/AdvReac Type Severity Reaction Status Date / Time No Known Allergies Allergy Verified 05/02/23 19:54 <DERRICK Welch Last Filed: 05/03/23 04:07> Review of Systems Review of Systems: CONSTITUTIONAL: Denies fever, chills EYES: Denies visual changes, redness, or discharge. ENT: Denies rhinorrhea, congestion, sore throat, or otalgia. CARDIOVASCULAR: Denies chest pain, palpitations, or edema. RESPIRATORY: Denies cough or dyspnea. GASTROINTESTINAL: see HPI GENITOURINARY: See HPI SKIN: Denies rash or itching. MUSCULOSKELETAL: Denies back pain, joint pain, or myalgia. NEUROLOGIC: Denies headache, numbness, dizziness, or weakness. PSYCHIATRIC: Denies anxiety or depression. <Meera Knapp PA-C - Last Filed: 05/03/23 04:07> COUNTS INCLUDE 234 BEDS AT THE [facility] Past Medical History Medical History: Medical History Kidney stones Morbid obesity with BMI of 45.0-49.9, adult PIH ( induced hypertension) Pseudotumor cerebri Seizure x1 after lap monique <Meera Knapp PA-C - Last Filed: 05/03/23 04:07> Surgical History Surgical History: Surgical History History of cholecystectomy <Meera Knapp PA-C - Last Filed: 05/03/23 04:07> Family History Family History: Family History Mother Kidney stones Father Kidney failure Diabetes mellitus Hypertension <Meera Knapp PA-C - Last Filed: 05/03/23 04:07> Social History Social History: Social History Smoking packs per day: 0.5 Smoking cigarettes per day: 10.0 Years smoked: 4 Smoking pack-years: 2.00 Smoking status: Current some day smoker Tobacco type: cigarettes Alcohol intake: never Substance use: never Substance use type: does not use Lack of Transportation: No Lack of Food: Never True Current Housing: I Have Housing Concerned About Future Housing: No Difficulty Paying Gas/Electric Bills: No Difficulty Paying for Meds: No Currently Unemployed: No Education: High School Diploma/GED Difficulty w/
[2023-05-02 21:16] VITALS: BP 136/94; O2SAT 98
[2023-05-02 21:18] VITALS: O2SAT 100
[2023-05-02] MEDS: ACETAMINOPHEN 500 MG TABLET 1000 MG PO (21:21)
[2023-05-02] MEDS: SODIUM CHLORIDE 0.9% IV 1,000 ML 999 ML IV CONT (21:21)
[2023-05-02 21:37] LABS: Basophils Percent Auto 0.6 % (0.2-1.2); Eosinophils Absolute Auto 0.2 K/mm3 (0-0.3); Eosinophils Percent Auto 2.6 % (0-4.4); Hematocrit 30.7 % (37.0-47.0); Hemoglobin 9.8 g/dL (12.0-15.0); Immature Granulocyte Absolute 0.05 K/mm3 (0.00-0.031); Immature Granulocyte Percent A 0.7 % (0-0.5); Lymphocytes Absolute Auto 1.25 K/mm3 (0.9-3.2); Mean Corpuscular HGB Conc 31.9 g/dl (32-36); Mean Corpuscular Hemoglobin 28.7 pg (26-34); Mean Corpuscular Volume 89.8 fl (80-100); Mean Platelet Volume 9.1 fl (7.4-10.4); Monocytes Absolute Auto 0.6 K/mm3 (0.1-0.6); Monocytes Percent Auto 8.6 % (2.6-8.5); Neutrophils Absolute Auto 4.8 K/mm3 (1.3-6.7); Neutrophils Percent Auto 69.5 % (45.5-73.1); Platelet Count Result 400 k/mm3 (150-375); Red Blood Count 3.42 M/mm3 (4.2-5.4); Red Cell Distribution Width 13.4 % (11.5-14.5)
[2023-05-02 21:44] LABS: Chloride 107 mmol/L (98-107)
[2023-05-02 21:47] LABS: Prothrombin Time 13.8 Seconds (11.1-14.7)
[2023-05-02 21:48] LABS: Partial Thromboplastin Time 34.5 SECONDS (22.3-36.8)
[2023-05-02 21:52] LABS: Bacteria Urine 4+ /hpf; Need Manual Microscopic Reviewed; Non Pathogenic Casts 0-2; RBC Urine >100 /hpf (0-2); Squamous Epithelial Cell Urine Occasional /hpf (Few); WBC Urine >100 /hpf
[2023-05-02 21:54] LABS: Appearance Urine Cloudy (Clear); Bilirubin Urine 1+ (Negative); Blood Urine 3+ (Negative); Color Urine Amber (Yellow); Glucose Urine UA Negative (Negative); Ketones Urine Negative (Negative); Leukocyte Esterase Ur 1+ LEU/UL (Negative); Nitrate Urine Positive (Negative); Protein Urine 3+ mg/dL (Negative); Specific Grav Ur 1.025 (1.001-1.035)
[2023-05-02 21:55] LABS: Add Urine Microscopic? YES
[2023-05-02 21:57] LABS: Alanine Aminotransferase 25 U/L (6-35); Albumin Level 3.5 g/dL (3.5-5.1); Alkaline Phosphatase 122 U/L (38-126); Anion Gap 5 mmol/L (8-16); Aspartate Amino Transferase 24 U/L (14-36); Bilirubin,Total 0.4 mg/dL (0.2-1.3); Blood Urea Nitrogen 9 mg/dL (7-17); Calcium 8.5 mg/dL (8.4-10.2); Carbon Dioxide 26 mmol/L (22-30); Estimated CRCL calculation 131 ml/min; Estimated Glomerular Filt Rate > 60; Glucose 85 mg/dL (65-110); Potassium 3.7 mmol/L (3.4-5.0); Sodium 138 mmol/L (137-145)
--- NOTE | 2023-05-02 23:10 | PC.NURSE ---
This RN assumed care of patient.
== END 2023-05-03 00:05 | disposition home or self-care (01) ==
PROVIDERS: Emergency Provider Physician Assistant
DX: O90.89 Other complications of the puerperium, not elsewhere classified (principal); O86.20 Urinary tract infection following delivery, unspecified; N39.0 Urinary tract infection, site not specified; O99.215 Obesity complicating the puerperium; E66.01 Morbid (severe) obesity due to excess calories; O99.335 Smoking (tobacco) complicating the puerperium; F17.210 Nicotine dependence, cigarettes, uncomplicated; Z90.49 Acquired absence of other specified parts of digestive tract; Z87.442 Personal history of urinary calculi
CPT/HCPCS: 36415; 74177; 80053; 81001; 85025; 85610; 85730; 87077; 87086; 87088; 87186; 96361; 96365; 99284; A9270; J0696; J7030; Q9967